=== PATIENT | female | born 1945 | race Caucasian/White ===

== ENCOUNTER 2021-02-04 15:47 | Inpatient (IN) ==
[2021-02-04] MEDS ORDERED: ACETAMINOPHEN 1,000 MG/100 ML VIAL IV STA (16:21)
[2021-02-04] MEDS ORDERED: dexAMETHasone**PF** 10 MG/ML VIAL IV ONE (16:21)
[2021-02-04] MEDS ORDERED: SODIUM CHLORIDE 0.9% 1000ML 1,000 ML IV ONE (16:21)
[2021-02-04] MEDS ORDERED: IPRATROPIUM BROMIDE/ALBUTEROL respimat INH INH STA (16:23)
[2021-02-04] MEDS ORDERED: guaiFENesin 600 MG TABCR PO STA (16:23)
[2021-02-04 16:33] LABS: Hematocrit (blood only) 37.4 % (37-47); Hemoglobin 12.3 g/dL (12.0-16.0); Immature Granulocytes # (auto) 0.02 K/uL (0.00-0.02); Immature Granulocytes % (auto) 0.4 %; Lymphocytes # (auto) 1.19 K/uL (1.2-3.4); Lymphocytes % (auto) 22.8 %; Mean Corpuscular Hemoglobin 29.1 pg (25-34); Mean Corpuscular Hgb Conc 32.9 g/dL (32-36); Mean Corpuscular Volume 88.4 fL (80-100); Mean Platelet Volume 9.9 fL (7.4-10.4); Monocytes % (auto) 9.6 %; Neutrophils # (auto) 3.52 K/uL (1.4-6.5); Neutrophils % (auto) 67.2 %; Platelet Count 205 K/uL (130-400); RDW Coefficient of Variation 13.2 % (11.5-14.5); RDW Standard Deviation 42.7 fL (36.4-46.3); Red Blood Count 4.23 M/uL (4.2-5.4); White Blood Count 5.23 K/uL (4.8-10.8)
[2021-02-04 16:57] LABS: Prothrombin Time 10.1 Seconds (9.0-12.0)
[2021-02-04 16:59] LABS: Albumin Level 2.9 gm/dl (3.4-5.0); BUN Creatinine Ratio 14.9 (10-20); Creatinine Clr Calc Pharmacy 69.2 ml/min; Est GFR (African American) 93.6; Est GFR (Non-African American) 80.8; Potassium 3.7 mmol/L (3.5-5.1)
--- NOTE | 2021-02-04 16:59 | XRay Report ---
XR chest 1V portable HISTORY: Atypical Chest Pain COMPARISON: Outside hospital chest CTA 07/21/2016. FINDINGS: Chronic volume loss within the left hemithorax secondary to a prior left lower lobectomy. T here is a stable linear scarlike density at the left lung base. No pneumothorax. No pleural effusions . The heart is normal in size. Hazy peripheral airspace opacities within the mid to lower lung zones. The upper lung zones remain clear. No evidence for pulmonary edema. IMPRESSION: Hazy peripheral airspace opacities within the mid to lower lung zones. This could represent a viral p neumonia ACT 112: Negative or not required by law. Electronically signed by: Harrison Luna M.D. 02/04/2021 4:57 PM
[2021-02-04 17:01] LABS: Appearance Urine Clear (Clear); Bacteria Urine Automated Negative (Negative); Bilirubin Urine Negative (Negative); Blood Urine Trace (Negative); Color Urine Yellow; Glucose Urine UA Negative (Negative); Ketones Urine Negative (Negative); Leukocyte Esterase Urine Negative (Negative); Nitrite Urine Negative (Negative); Protein Urine Negative (Negative); RBC Urine Automated 0-4 /hpf (0-4); Urobilinogen Urine Negative (Negative); pH Urine 6.5 (4.5-7.5)
--- NOTE | 2021-02-04 17:08 | Emergency Department Note ---
Impression & Plan Pneumonia due to COVID-19 virus, Hypoxia, Elevated troponin ED Provider Note NAME: CASSIDY NOLAN AGE: 75 SEX: F ARRIVES VIA: Ambulance INFORMANT: Patient, ED PROVIDER(S): Chema Figueroa MD CHIEF COMPLAINT: Shortness of breath. PLAN: Disposition: Admit MEDICAL DECISION MAKING: The patient is a pleasant 75-year-old woman with a past medical history of hypertension, hyperlipidemia, possible history of COPD in the setting of remote smoking history, CAD who presents to the emergency department with worsening shortness of breath, body aches and fatigue in the setting of being diagnosed with COVID-19 on 01/23 with symptoms that began shortly before that but with progressive worsening seen at [place] emergency department yesterday but discharged however additional worsening today. She reports significant shortness of breath that worsens with minimal exertion where she cannot catch her breath. She denies chest pain. She denies any recent fevers but has felt feverish with body aches. She reports some mild nausea but no vomiting. She denies any diarrhea. Denies any urinary symptoms. On arrival the patient is fatigued, uncomfortable mildly dyspneic but no acute distress, temperature of 37.6 with O2 saturation that would dipped as low as 86% with exertion on room air placed on 2 L nasal cannula. She appears clinically dry. She has mild perioral cyanosis. Abdomen is benign. Lungs with scant intermittent wheeze and is otherwise clear. Chest x-ray performed and is consistent with COVID-19 pneumonia. WBC, H/H and platelets within normal limits. Chemistry without metabolic acidosis. LFTs without significant abnormality. Troponin 0.083 likely related to demand in setting of hypoxia/pna. UA without evidence of infection. Given the patient's hypoxia and dyspnea in setting of COVID-19 pna reasonable to admit the patient for further management. The patient is agreeable with this. She was treated in itially with IV fluid hydration, dexamethasone, guaifenesin and Combivent. Case was discussed with Dr. Temple, [facility] hospitalist, who will evaluate the patient for admission. Triage Nursing notes reviewed and agree them. Prior medical records reviewed Vital Signs: reviewed and remarkable for hypoxia. Differential diagnosis: Reactive airway disease, pneumonia, pneumothorax, COPD, CHF, infections, cardiac ischemia, pulmonary embolism, musculoskeletal, gastrointestinal, as well as other pathologies. ER treatment provided: See below. Diagnostics interpreted by me: ECG: NSR, 70 bpm, no ectopy, no overt ST elevation or depression. Cardiac Monitoring: An order for continuous cardiac monitoring was placed and demonstrated NSR, 70 bpm, no ectopy. Laboratory studies: See below Imaging studies: See below Consultation(s): Case was discussed with Dr. Temple, [facility] hospitalist, who will evaluate the patient for admission. HPI: The patient is a pleasant 75-year-old woman with a past medical history of hypertension, hyperlipidemia, possible history of COPD in the setting of remote smoking history, CAD who presents to the emergency department with worsening shortness of breath, body aches and fatigue in the setting of being diagnosed with COVID-19 on 01/23 with symptoms that began shortly before that but with progressive worsening seen at [place] emergency department yesterday but discharged however additional worsening today. She reports significant shortness of breath that worsens with minimal exertion where she cannot catch her breath. She denies chest pain. She denies any recent fevers but has felt feverish with body aches. She reports some mild nausea but no vomiting. She denies any diarrhea. Denies any urinary symptoms. ROS: See above HPI for pertinent positives & negatives. A total of 10 systems reviewed and were otherwise negative. PAST MEDICAL HISTORY:See Below PAST SURGICAL HISTORY:See Below FAMILY HISTORY:See Below SOCIAL HISTORY:See Below HOME MEDICATIONS:See Below ALLERGIES:See Below VITALS:See Below PHYSICAL EXAMINATION: GENERAL: Awake, alert, fatigued-appearing, in no distress HENT: Normocephalic, atraumatic. Oropharynx with dry mucous membranes. Perioral cyanosis. EYES: Normal conjunctiva. Sclera non-icteric. NECK: Supple. No nuchal rigidity. FROM. No JVD. RESPIRATORY: Scant intermittent wheeze and is otherwise clear. CARDIAC: Regular rate, normal rhythm. Extremities warm and well perfused. Pulses equal. ABDOMEN: Soft, non-distended. No tenderness to palpation. No rebound or guarding. No masses. RECTAL: Deferred. MUSCULOSKELETAL: Chest examination reveals no tenderness. The back is symmetrical on inspection without obvious abnormality. There is no CVA tenderness to palpation. No joint edema. LOWER EXTREMITIES: Calves are equal size bilaterally and non-tender. No edema. No discoloration. NEURO: Normal sensorium. No sensory or motor deficits noted. SKIN: No rash or jaundice noted. ED COURSE: Critical Care: I have personally spent greater than 35 minutes of critical care time in the direct management of this patient. This includes bedside care, interpretation of diagnostic studies, and testing, discussion with consultants, patient, and family members, and other required patient management activities. This 35 minutes is in excess of all separately billable procedures. Chema Figueroa MD Past Med/Surg History Medical History Acute myocardial infarction Hospitalized [facility] - 2016; 2 stents placed CAD (coronary artery disease) Essential (primary) hypertension Lung cancer LLL, ~2006 Mixed hyperlipidemia Surgical History H/O hysterectomy with unilateral oophorectomy Hx of appendectomy S/P laparoscopic cholecystectomy S/P lobectomy of lung 2006 - [facility]; removal of LLL 2nd lung cancer Family History Aunt Pulmonary embolism maternal aunt Mother , age 73 Congestive heart failure Father , age late 70s - old age; was a heavy alcohol consumer No problems noted. Social History Smoking Status: Former smoker Years Smoked: 15; Cigarettes Per Day: 0.5; Second Hand Exposure: No; Do You Dip or Chew Tobacco: No; Hx Alcohol Use: No Hx Substance Use: No Preferred Language: Slovenian Communication Ability: Effective President Ceo & Founder Required: No Beliefs That Will Affect Care: None marital status: Current Living Situation: Spouse Current Living Situation Comment: Aimee current occupation: home-maker How many Children do You have: 5 Other Information That Helps Us Care for You: No Feels Safe at Home: Yes Safety Concerns: Feels Safe At This Time Assistive Devices: None Allergies Allergies Allergy/AdvReac Type Severity Reaction Status Date / Time latex Allergy Intermediate RASH Verified 02/04/21 17:16 Sulfa (Sulfonamide Allergy Intermediate RASH Verified 02/04/21 17:16 Antibiotics) Home Meds Home Medications Medication Instructions Recorded Confirmed aspirin [Aspirin Low Dose] 81 mg PO DAILY 02/04/21 02/04/21 atorvastatin 40 mg PO DAILY 02/04/21 02/04/21 carvedilol 3.125 mg PO BID 02/04/21 02/04/21 doxycycline monohydrate 100 mg PO BID 02/04/21 02/04/21 lisinopril 20 mg PO DAILY 02/04/21 02/04/21 Results & Data (ED) Vital Signs Vital Signs - 24 hr 02/04/21 15:21 02/04/21 16:02 02/04/21 16:03 Temperature 37.6 C H Temperature Source Oral Pulse Rate 72 74 Pulse Rate from SpO2 Sensor 72 Pulse Rhythm Regular Pulse Strength Normal Respiratory Rate 24 22 Respiratory Effort / Characteristics Short of Breath Respiratory Depth Normal Respiratory Pattern Regular Blood Pressure 151/72 H 151/72 H Blood Pressure Mean 98 98 Blood Pressure Position Sitting Pulse Oximetry 98 93 92 Oxygen Delivery Method Room Air Room Air Oxygen Flow Rate 2 Sepsis Recent Fever Within 48 Hours No Sepsis New/Unexplained Change in Mental Status No Sepsis Action Taken by Nursing No Action Required Pulse Oximetry Post Tiitration 96 02/04/21 16:09 02/04/21 16:10 02/04/21 16:15 Temperature Temperature Source Pulse Rate 72 75 71 Pulse Rate from SpO2 Sensor 72 72 69 Pulse Rhythm Pulse Strength Respiratory Rate 21 24 23 Respiratory Effort / Characteristics Respiratory Depth Respiratory Pattern Blood Pressure 141/68 H Blood Pressure Mean 92 Blood Pressure Position Pulse Oximetry 94 94 94 Oxygen Delivery Method Oxygen Flow Rate 4 Sepsis Recent Fever Within 48 Hours Sepsis New/Unexplained Change in Mental Status Sepsis Action Taken by Nursing Pulse Oximetry Post Tiitration 02/04/21 16:21 02/04/21 16:30 02/04/21 16:31 Temperature Temperature Source Pulse Rate 86 70 69 Pulse Rate from SpO2 Sensor 85 69 70 Pulse Rhythm Pulse Strength Respiratory Rate 20 24 25 H Respiratory Effort / Characteristics Respiratory Depth Respiratory Pattern Blood Pressure 162/71 H Blood Pressure Mean 101 Blood Pressure Position Pulse Oximetry 85 L 95 95 Oxygen Delivery Method Oxygen Flow Rate 4 Sepsis Recent Fever Within 48 Hours Sepsis New/Unexplained Change in Mental Status Sepsis Action Taken by Nursing Pulse Oximetry Post Tiitration 02/04/21 16:40 02/04/21 16:45 02/04/21 16:50 Temperature Temperature Source Pulse Rate 70 71 76 Pulse Rate from SpO2 Sensor 69 70 80 Pulse Rhythm Pulse Strength Respiratory Rate 23 25 H 23 Respiratory Effort / Characteristics Respiratory Depth Respiratory Pattern Blood Pressure 146/64 H Blood Pressure Mean 91 Blood Pressure Position Pulse Oximetry 95 95 95 Oxygen Delivery Method Oxygen Flow Rate Sepsis Recent Fever Within 48 Hours Sepsis New/Unexplained Change in Mental Status Sepsis Action Taken by Nursing Pulse Oximetry Post Tiitration 02/04/21 17:00 02/04/21 17:01 02/04/21 17:10 Temperature Temperature Source Pulse Rate 72 69 79 Pulse Rate from SpO2 Sensor 71 69 79 Pulse Rhythm Pulse Strength Respiratory Rate 20 28 H 26 H Respiratory Effort / Characteristics Respiratory Depth Respiratory Pattern Blood Pressure 151/83 H Blood Pressure Mean 105 Blood Pressure Position Pulse Oximetry 96 95 98 Oxygen Delivery Method Oxygen Flow Rate Sepsis Recent Fever Within 48 Hours Sepsis New/Unexplained Change in Mental Status Sepsis Action Taken by Nursing Pulse Oximetry Post Tiitration 02/04/21 17:16 02/04/21 17:20 02/04/21 17:30 Temperature Temperature Source Pulse Rate 78 74 80 Pulse Rate from SpO2 Sensor 78 74 80 Pulse Rhythm Pulse Strength Respiratory Rate 36 H 25 H 20 Respiratory Effort / Characteristics Respiratory Depth Respiratory Pattern Blood Pressure 132/84 161/70 H Blood Pressure Mean 100 100 Blood Pressure Position Pulse Oximetry 100 97 95 Oxygen Delivery Method Oxygen Flow Rate Sepsis Recent Fever Within 48 Hours Sepsis New/Unexplained Change in Mental Status Sepsis Action Taken by Nursing Pulse Oximetry Post Tiitration 02/04/21 17:31 02/04/21 17:40 02/04/21 17:45 Temperature Temperature Source Pulse Rate 74 77 73 Pulse Rate from SpO2 Sensor 75 77 73 Pulse Rhythm Pulse Strength Respiratory Rate 24 24 24 Respiratory Effort / Characteristics Respiratory Depth Respiratory Pattern Blood Pressure 145/73 H Blood Pressure Mean 97 Blood Pressure Position Pulse Oximetry 97 98 97 Oxygen Delivery Method Oxygen Flow Rate Sepsis Recent Fever Within 48 Hours Sepsis New/Unexplained Change in Mental Status Sepsis Action Taken by Nursing Pulse Oximetry Post Tiitration 02/04/21 17:50 02/04/21 18:00 02/04/21 18:01 Temperature Temperature Source Pulse Rate 74 79 93 H Pulse Rate from SpO2 Sensor 74 78 83 Pulse Rhythm Pulse Strength Respiratory Rate 22 28 H 20 Respiratory Effort / Characteristics Respiratory Depth Respiratory Pattern Blood Pressure 98/65 L Blood Pressure Mean 76 Blood Pressure Position Pulse Oximetry 96 93 94 Oxygen Delivery Method Oxygen Flow Rate Sepsis Recent Fever Within 48 Hours Sepsis New/Unexplained Change in Mental Status Sepsis Action Taken by Nursing Pulse Oximetry Post Tiitration 02/04/21 18:10 02/04/21 18:16 Temperature Temperature Source Pulse Rate 72 Pulse Rate from SpO2 Sensor 72 Pulse Rhythm Pulse Strength Respiratory Rate 22 Respiratory Effort / Characteristics Respiratory Depth Respiratory Pattern Blood Pressure 154/75 H Blood Pressure Mean 101 Blood Pressure Position Pulse Oximetry 94 Oxygen Delivery Method Oxygen Flow Rate Sepsis Recent Fever Within 48 Hours Sepsis New/Unexplained Change in Mental Status Sepsis Action Taken by Nursing Pulse Oximetry Post Tiitration Laboratory Data Attestation: I reviewed the patient's lab results. Result diagrams: 02/04/21 16:16 02/04/21 16:16 Lab Results 02/04/21 02/04/21 02/04/21 Range/Units 16:16 16:16 16:16 WBC 5.23 (4.8-10.8) K/uL RBC 4.23 (4.2-5.4) M/uL Hgb 12.3 (12.0-16.0) g/dL Hct 37.4 (37-47) % MCV 88.4 (80-100) fL MCH 29.1 (25-34) pg MCHC 32.9 (32-36) g/dL RDW Std Deviation 42.7 (36.4-46.3) fL RDW Coeff of Chapo 13.2 (11.5-14.5) % Plt Count 205 (130-400) K/uL MPV 9.9 (7.4-10.4) fL Immature Gran % (Auto) 0.4 % Neut % (Auto) 67.2 % Lymph % (Auto) 22.8 % Mower % (Auto) 9.6 % Eos % (Auto) 0.0 % Baso % (Auto) 0.0 % Neut # (Auto) 3.52 (1.4-6.5) K/uL Lymph # (Auto) 1.19 L (1.2-3.4) K/uL Mower # (Auto) 0.50 (0.11-0.59) K/uL Eos # (Auto) 0.00 (0-0.5) K/uL Baso # (Auto) 0.00 (0-0.2) K/uL Immature Gran # (Auto) 0.02 (0.00-0.02) K/uL PT 10.1 (9.0-12.0) Seconds INR 1.0 (0.9-1.1) Sodium 141 (136-145) mmol/L Potassium 3.7 (3.5-5.1) mmol/L Chloride 110 H (98-107) mmol/L Carbon Dioxide 27 (21-32) mmol/L Anion Gap 4.0 (3-11) BUN 11 (7-18) mg/dl Creatinine 0.72 (0.6-1.2) mg/dl Est Cr Clr Drug Dosing 69.2 ml/min Est GFR ( Amer) 93.6 Est GFR (Non-Af Amer) 80.8 BUN/Creatinine Ratio 14.9 (10-20) Glucose 101 H (70-99) mg/dl Calcium 8.0 L (8.5-10.1) mg/dl Phosphorus 2.4 L (2.5-4.9) mg/dl Magnesium 2.0 (1.8-2.4) mg/dl Total Bilirubin 0.6 (0.2-1) mg/dl AST 48 H (15-37) U/L ALT 67 (12-78) U/L Alkaline Phosphatase 52 (45-117) U/L Troponin I 0.083 H* (0-0.045) ng/ml Total Protein 6.5 (6.4-8.2) gm/dl Albumin 2.9 L (3.4-5.0) gm/dl Globulin 3.6 (2.5-4.0) gm/dl Albumin/Globulin Ratio 0.8 L (0.9-2) Lipase 282 (73-393) U/L Urine Color Urine Appearance (Clear) Urine pH (4.5-7.5) Ur Specific Coin (1.000-1.030) Urine Protein (Negative) Urine Glucose (UA) (Negative) Urine Ketones (Negative) Urine Blood (Negative) Urine Nitrite (Negative) Urine Bilirubin (Negative) Urine Urobilinogen (Negative) Ur Leukocyte Esterase (Negative) Urine WBC (Auto) (0-5) /hpf Urine RBC (Auto) (0-4) /hpf U Hyaline Cast (Auto) (0-5) /lpf U Epithel Cells (Auto) (0-5) /lpf Urine Bacteria (Auto) (Negative) 02/04/21 Range/Units 16:20 WBC (4.8-10.8) K/uL RBC (4.2-5.4) M/uL Hgb (12.0-16.0) g/dL Hct (37-47) % MCV (80-100) fL MCH (25-34) pg MCHC (32-36) g/dL RDW Std Deviation (36.4-46.3) fL RDW Coeff of Chapo (11.5-14.5) % Plt Count (130-400) K/uL MPV (7.4-10.4) fL Immature Gran % (Auto) % Neut % (Auto) % Lymph % (Auto) % Mower % (Auto) % Eos % (Auto) % Baso % (Auto) % Neut # (Auto) (1.4-6.5) K/uL Lymph # (Auto) (1.2-3.4) K/uL Mower # (Auto) (0.11-0.59) K/uL Eos # (Auto) (0-0.5) K/uL Baso # (Auto) (0-0.2) K/uL Immature Gran # (Auto) (0.00-0.02) K/uL PT (9.0-12.0) Seconds INR (0.9-1.1) Sodium (136-145) mmol/L Potassium (3.5-5.1) mmol/L Chloride (98-107) mmol/L Carbon Dioxide (21-32) mmol/L Anion Gap (3-11) BUN (7-18) mg/dl Creatinine (0.6-1.2) mg/dl Est Cr Clr Drug Dosing ml/min Est GFR ( Amer) Est GFR (Non-Af Amer) BUN/Creatinine Ratio (10-20) Glucose (70-99) mg/dl Calcium (8.5-10.1) mg/dl Phosphorus (2.5-4.9) mg/dl Magnesium (1.8-2.4) mg/dl Total Bilirubin (0.2-1) mg/dl AST (15-37) U/L ALT (12-78) U/L Alkaline Phosphatase (45-117) U/L Troponin I (0-0.045) ng/ml Total Protein (6.4-8.2) gm/dl Albumin (3.4-5.0) gm/dl Globulin (2.5-4.0) gm/dl Albumin/Globulin Ratio (0.9-2) Lipase (73-393) U/L Urine Color Yellow Urine Appearance Clear (Clear) Urine pH 6.5 (4.5-7.5) Ur Specific Coin 1.010 (1.000-1.030) Urine Protein Negative (Negative) Urine Glucose (UA) Negative (Negative) Urine Ketones Negative (Negative) Urine Blood Trace H (Negative) Urine Nitrite Negative (Negative) Urine Bilirubin Negative (Negative) Urine Urobilinogen Negative (Negative) Ur Leukocyte Esterase Negative (Negative) Urine WBC (Auto) 1-5 (0-5) /hpf Urine RBC (Auto) 0-4 (0-4) /hpf U Hyaline Cast (Auto) 1-5 (0-5) /lpf U Epithel Cells (Auto) 5-10 H (0-5) /lpf Urine Bacteria (Auto) Negative (Negative) Administered Medications Carvedilol (Carvedilol 3.125 Mg Tab) 3.125 mg PO BID LUIS Stop: 03/06/21 22:28 Last Admin: 02/04/21 23:35 Dose: 3.125 mg Documented by: [id number] Famotidine (Famotidine 20 Mg Tab) 20 mg PO BID LUIS Stop: 03/06/21 22:28 Last Admin: 02/04/21 23:35 Dose: 20 mg Documented by: [id number] Guaifenesin (Guaifenesin 600 Mg Tabcr) 1,200 mg PO Q12 LUIS Stop: 03/06/21 22:28 Last Admin: 02/04/21 23:35 Dose: 1,200 mg Documented by: [id number] Sodium Chloride (Nss 1000ml) 1,000 mls @ 100 mls/hr IV .Q10H LUIS Stop: 02/05/21 08:28 Last Admin: 02/04/21 23:35 Dose: 100 mls/hr Documented by: [id number] Discontinued Medications Albuterol (Ipratropium [place]/Albuterol Respimat Inh) 1 puffs INH NOW STA Stop: 02/04/21 16:24 Last Admin: 02/04/21 17:15 Dose: 1 puffs Documented by: [id number] Dexamethasone Sodium Phosphate (DexamethasonePf 10 Mg/Ml Vial) 10 mg IV NOW ONE Stop: 02/04/21 16:22 Last Admin: 02/04/21 17:05 Dose: 10 mg Documented by: [id number] Guaifenesin (Guaifenesin 600 Mg Tabcr) 600 mg PO NOW STA Stop: 02/04/21 16:24 Last Admin: 02/04/21 17:04 Dose: 600 mg Documented by: [id number] Sodium Chloride (Nss 1000ml) 1,000 mls @ 999 mls/hr IV .Q1H1M ONE Stop: 02/04/21 17:21 Last Infusion: 02/04/21 18:02 Dose: 0 mls/hr Documented by: [id number] Admin: 02/04/21 17:01 Dose: 999 mls/hr Documented by: [id number] Acetaminophen (Ofirmev) 1,000 mg in 100 mls @ 400 mls/hr IV NOW STA Stop: 02/04/21 16:35 Last Infusion: 02/04/21 17:22 Dose: 0 mls/hr Documented by: [id number] Admin: 02/04/21 17:07 Dose: 400 mls/hr Documented by: [id number] Imaging Data Radiologist's Impression: Chest X-Ray 02/04/21 16:21 XR chest 1V portable HISTORY: Atypical Chest Pain COMPARISON: Outside hospital chest CTA 07/21/2016. FINDINGS: Chronic volume loss within the left hemithorax secondary to a prior left lower lobectomy. There is a stable linear scarlike density at the left lung base. No pneumothorax. No pleural effusions. The heart is normal in size. Hazy peripheral airspace opacities within the mid to lower lung zones. The upper lung zones remain clear. No evidence for pulmonary edema. IMPRESSION: Hazy peripheral airspace opacities within the mid to lower lung zones. This could represent a viral pneumonia ACT 112: Negative or not required by law. Electronically signed by: Harrison Luna M.D. 02/04/2021 4:57 PM Discharge Plan Visit Data Chief Complaint: Illness Stated Complaint: SOB, COVID + ED Provider: Chema Figueroa Discharge Problem: Pneumonia due to COVID-19 virus, Hypoxia, Elevated troponin Patient Disposition: Admitted As Inpatient Discharge Instructions Interventions: ED Discharge Assessment Last Done: 02/04/21 22:04
[2021-02-04 17:19] LABS: Albumin Globulin Ratio 0.8 (0.9-2); Bilirubin,Total 0.6 mg/dl (0.2-1); Globulin 3.6 gm/dl (2.5-4.0); Phosphorus 2.4 mg/dl (2.5-4.9); Total Protein 6.5 gm/dl (6.4-8.2); Troponin I 0.083 ng/ml (0-0.045)
--- NOTE | 2021-02-04 18:54 | History & Physical Report ---
Date of Service February 04, 2021 Assessment & Plan (1) Pneumonia due to COVID-19 virus: With resulting acute hypoxic resp failure. Moderate disease radiographically and clinically. Unfortunately she is too far into her illness for use of remdesivir or convalescent plasma. Will Rx with 10-day course of IV/PO dexamethasone 6mg daily. Discussed in detail self-proning. Flutter valve/incentive cindy. O2 via NC to maintain O2 >90%. Mucinex BID. Combivent qid. Check dimer and procal in am. However, no signs of secondary bacterial infection at this time. (2) Acute respiratory failure with hypoxia: 2nd COVID-19 pneumonia. See above. (3) CAD (coronary artery disease): h/o acute [place] 2015. Stents x 2 at that time; placed at [facility]. No ischemic symptoms at this time. Continue asa, statin, BB. (4) Mixed hyperlipidemia: AST minimally elevated today; likely 2nd to COVID-19. Will cont statin cautiously. Recheck AST am. (5) Essential (primary) hypertension: Cont coreg & lisinopril. (6) Elevated troponin: Likely myocardial demand ischemia in setting of acute hypoxic resp failure/COVID-19 pneumonia. Trend the trops. (7) History of lung cancer: LLL. s/p lobectomy in the past. (8) Elevated AST (SGOT): Likely 2nd COVID-19 infection. Trend. (9) DVT prophylaxis: Given high risk of VTE with COVID will place on BID lovenox. spoke with pt's son by phone, gave update, answered questions. has tested + per son but he is without symptoms. airborne isolation in COVID unit. History of Present Illness Chief Complaint: worsening COVID symptoms Primary Care Provider: Dougie Del Valle 75yo female with h/o HTN & hyperlipidemia presents with worsening COVID-19 symptoms that began on January 23. Started with severe fatigue for 2-3 days, followed by severe body aches. This was associated with nasal congestion, headache, and cough. The cough started very early in the illness. Cough is largely dry. Has had at least 2 instances of fever, highest about 101. Occasional chill. VERY poor appetite. Drinking some fluids. No vomiting or diarrhea. Has had nausea. Has lost both her taste and smell. The cough and shortness of breath have worsened in the last few days. She had mild discomfort under the costal margin recently but this is now resolved. Today she "couldn't stand it any longer - I was so sick" and thus she came to be evaluated. Her initial diagnosis of COVID was made in early January at an urgent care in [place]. The MD at the urgent care called in doxycycline for a possible concomitant sinus infection but she never took it. Allergies Allergy/AdvReac Type Severity Reaction Status Date / Time latex Allergy Intermediate RASH Verified 02/04/21 17:16 Sulfa (Sulfonamide Allergy Intermediate RASH Verified 02/04/21 17:16 Antibiotics) Home Medications Medication Instructions Recorded Confirmed Type aspirin [Aspirin Low Dose] 81 mg PO DAILY 02/04/21 02/04/21 History atorvastatin 40 mg PO DAILY 02/04/21 02/04/21 History carvedilol 3.125 mg PO BID 02/04/21 02/04/21 History doxycycline monohydrate 100 mg PO BID 02/04/21 02/04/21 History lisinopril 20 mg PO DAILY 02/04/21 02/04/21 History Past Med/Surg History Medical History Acute myocardial infarction Hospitalized [facility] - 2016; 2 stents placed CAD (coronary artery disease) Essential (primary) hypertension Lung cancer LLL, ~2006 Mixed hyperlipidemia Surgical History H/O hysterectomy with unilateral oophorectomy Hx of appendectomy S/P laparoscopic cholecystectomy S/P lobectomy of lung 2006 - [facility]; removal of LLL 2nd lung cancer Family History Aunt Pulmonary embolism maternal aunt Mother , age 73 Congestive heart failure Father , age late 70s - old age; was a heavy alcohol consumer No problems noted. Social History Smoking Status: Former smoker Years Smoked: 15; Cigarettes Per Day: 0.5; Second Hand Exposure: No; Do You Dip or Chew Tobacco: No; Hx Alcohol Use: No Hx Substance Use: No Preferred Language: Cuban Communication Ability: Effective Last Sorter Required: No Beliefs That Will Affect Care: None marital status: Current Living Situation: Spouse Current Living Situation Comment: Aimee current occupation: home-maker How many Children do You have: 5 Other Information That Helps Us Care for You: No Feels Safe at Home: Yes Safety Concerns: Feels Safe At This Time Assistive Devices: None Review of Systems Constitutional: + fever, + chills, + body aches, + fatigue, + weakness and + anorexia Eyes: no worsening vision Ear, Nose, Mouth, Throat: + nasal congestion and + dry mouth; no dysphagia no loss of taste/smell Respiratory: + cough, + chest congestion, + dyspnea, + dyspnea on exertion and + sputum production; no hemoptysis and no wheezing Cardiovascular: no chest pain and no edema Gastrointestinal: + nausea and + constipation; no abdominal pain, no vomiting and no diarrhea/loose stools Genitourinary: no dysuria Musculoskeletal: + myalgia Integumentary: no rash Neurologic: + generalized weakness Psychiatric: no depression Endocrine: no diabetes Hematologic / Lymphatic: no easy bleeding and no easy bruising Physical Exam Constitutional: + acute distress (None at rest; with moving she has dyspnea and mild tachypnea ), + ill appearing and + frail appearing; no altered mental status Eyes: PERRL ENMT: Mouth: + dry oral mucous membranes Neck: trachea midline, no thyromegaly Respiratory: + retractions (Minimal - when she moves in bed), + cough and + tachypneic Auscultation: + crackles (Extensive, b/l bases, 1/[address] back) and + wheezes (Only when she coughs) Cardiovascular: Rate/Rhythm: regular rate and regular rhythm Heart Sounds: normal S1 and normal S2; no murmur Vessels: posterior tibial pulses present and dorsalis pedis pulses present; no JVD Extremities: no edema Gastrointestinal (Abdomen): normal bowel sounds, soft, nontender, no hepatosplenomegaly Musculoskeletal: no cyanosis or clubbing, extremities motor strength 5/5 Skin: no rashes, warm and dry Neurologic: deep tendon reflexes 2+ bilaterally and moves all extremities; no focal motor deficits Psychiatric: A+Ox3, euthymic affect Lymphatic: no cervical lymphadenopathy Results & Data Results & Data ([facility]) Vital Signs (Past 12 Hours) Vital Signs Temp Pulse Resp BP Pulse Ox 02/04/21 16:03 37.6 C H 74 22 151/72 H 92 02/04/21 15:21 98 Laboratory Results Laboratory Results - last 24 hr 02/04/21 02/04/21 02/04/21 16:16 16:16 16:16 WBC 5.23 RBC 4.23 Hgb 12.3 Hct 37.4 MCV 88.4 MCH 29.1 MCHC 32.9 RDW Std Deviation 42.7 RDW Coeff of Chapo 13.2 Plt Count 205 MPV 9.9 Immature Gran % (Auto) 0.4 Neut % (Auto) 67.2 Lymph % (Auto) 22.8 Dixon % (Auto) 9.6 Eos % (Auto) 0.0 Baso % (Auto) 0.0 Neut # (Auto) 3.52 Lymph # (Auto) 1.19 L Dixon # (Auto) 0.50 Eos # (Auto) 0.00 Baso # (Auto) 0.00 Immature Gran # (Auto) 0.02 PT 10.1 INR 1.0 D-Dimer Sodium 141 Potassium 3.7 Chloride 110 H Carbon Dioxide 27 Anion Gap 4.0 BUN 11 Creatinine 0.72 Est Cr Clr Drug Dosing 69.2 Est GFR ( Amer) 93.6 Est GFR (Non-Af Amer) 80.8 BUN/Creatinine Ratio 14.9 Glucose 101 H Calcium 8.0 L Phosphorus 2.4 L Magnesium 2.0 Total Bilirubin 0.6 AST 48 H ALT 67 Alkaline Phosphatase 52 Troponin I 0.083 H* Total Protein 6.5 Albumin 2.9 L Globulin 3.6 Albumin/Globulin Ratio 0.8 L Lipase 282 Procalcitonin Urine Color Urine Appearance Urine pH Ur Specific [place] Urine Protein Urine Glucose (UA) Urine Ketones Urine Blood Urine Nitrite Urine Bilirubin Urine Urobilinogen Ur Leukocyte Esterase Urine WBC (Auto) Urine RBC (Auto) U Hyaline Cast (Auto) U Epithel Cells (Auto) Urine Bacteria (Auto) 02/04/21 02/04/21 02/05/21 16:20 22:59 06:27 WBC RBC Hgb Hct MCV MCH MCHC RDW Std Deviation RDW Coeff of Chapo Plt Count MPV Immature Gran % (Auto) Neut % (Auto) Lymph % (Auto) Dixon % (Auto) Eos % (Auto) Baso % (Auto) Neut # (Auto) Lymph # (Auto) Dixon # (Auto) Eos # (Auto) Baso # (Auto) Immature Gran # (Auto) PT INR D-Dimer Sodium Potassium Chloride Carbon Dioxide Anion Gap BUN Creatinine Est Cr Clr Drug Dosing Est GFR ( Amer) Est GFR (Non-Af Amer) BUN/Creatinine Ratio Glucose Calcium Phosphorus Magnesium Total Bilirubin AST ALT Alkaline Phosphatase Troponin I 0.083 H* Total Protein Albumin Globulin Albumin/Globulin Ratio Lipase Procalcitonin Pending Urine Color Yellow Urine Appearance Clear Urine pH 6.5 Ur Specific [place] 1.010 Urine Protein Negative Urine Glucose (UA) Negative Urine Ketones Negative Urine Blood Trace H Urine Nitrite Negative Urine Bilirubin Negative Urine Urobilinogen Negative Ur Leukocyte Esterase Negative Urine WBC (Auto) 1-5 Urine RBC (Auto) 0-4 U Hyaline Cast (Auto) 1-5 U Epithel Cells (Auto) 5-10 H Urine Bacteria (Auto) Negative 02/05/21 02/05/21 06:27 06:27 WBC RBC Hgb Hct MCV MCH MCHC RDW Std Deviation RDW Coeff of Chapo Plt Count MPV Immature Gran % (Auto) Neut % (Auto) Lymph % (Auto) Dixon % (Auto) Eos % (Auto) Baso % (Auto) Neut # (Auto) Lymph # (Auto) Dixon # (Auto) Eos # (Auto) Baso # (Auto) Immature Gran # (Auto) PT INR D-Dimer Pending Sodium Pending Potassium Pending Chloride Pending Carbon Dioxide Pending Anion Gap Pending BUN Pending Creatinine Pending Est Cr Clr Drug Dosing Pending Est GFR ( Amer) Pending Est GFR (Non-Af Amer) Pending BUN/Creatinine Ratio Pending Glucose Pending Calcium Pending Phosphorus Magnesium Total Bilirubin AST Pending ALT Alkaline Phosphatase Troponin I Pending Total Protein Albumin Globulin Albumin/Globulin Ratio Lipase Procalcitonin Urine Color Urine Appearance Urine pH Ur Specific [place] Urine Protein Urine Glucose (UA) Urine Ketones Urine Blood Urine Nitrite Urine Bilirubin Urine Urobilinogen Ur Leukocyte Esterase Urine WBC (Auto) Urine RBC (Auto) U Hyaline Cast (Auto) U Epithel Cells (Auto) Urine Bacteria (Auto) Diagnostic Findings Chest X-Ray 02/04/21 16:21 XR chest 1V portable HISTORY: Atypical Chest Pain COMPARISON: Outside hospital chest CTA 07/21/2016. FINDINGS: Chronic volume loss within the left hemithorax secondary to a prior left lower lobectomy. There is a stable linear scarlike density at the left lung base. No pneumothorax. No pleural effusions. The heart is normal in size. Hazy peripheral airspace opacities within the mid to lower lung zones. The upper lung zones remain clear. No evidence for pulmonary edema. IMPRESSION: Hazy peripheral airspace opacities within the mid to lower lung zones. This could represent a viral pneumonia ACT 112: Negative or not required by law. Electronically signed by: Harrison Luna M.D. 02/04/2021 4:57 PM EKG - NSR, no ST changes Code Status & VTE Plan Code Status full VTE Prophylaxis Plan VTE Prophylaxis will be ordered: Yes PG Care Time/CCT Total # of Minutes Spent Total Time Spent with Patient: Total time spent is greater than 50% in coordination of care (as documented) at patient's floor/unit and/or counseling patient: Coding Level of Care Code 82172 Initial Inpt Care Lvl 3 Diagnoses Pneumonia due to COVID-19 virus U07.1; J12.82 Acute respiratory failure with hypoxia J96.01 CAD (coronary artery disease) I25.10 Associated angina: without angina Coronary Disease-Associated Artery/Lesion type: [place] artery [place] vs. transplanted heart: [place] heart Mixed hyperlipidemia E78.2 Essential (primary) hypertension I10 Elevated troponin R77.8 History of lung cancer Z85.118 Elevated AST (SGOT) R74.01 DVT prophylaxis Z29.9 (1) CAD (coronary artery disease) Associated angina: without angina Coronary Disease-Associated Artery/Lesion type: [place] artery [place] vs. transplanted heart: [place]nee heart Qualified Code(s): I25.10 - Atherosclerotic heart disease of [place] coronary artery without angina pectoris
[2021-02-04] MEDS ORDERED: ONDANSETRON INJ 2 MG/ML 2 ML VIAL IV PRN (22:29)
[2021-02-04] MEDS ORDERED: IPRATROPIUM BROMIDE/ALBUTEROL respimat INH INH SCH (22:29)
[2021-02-04] MEDS ORDERED: ACETAMINOPHEN 325 MG TAB PO PRN (22:29)
[2021-02-04] MEDS ORDERED: SODIUM CHLORIDE 0.9% 1000ML 1,000 ML IV SCH (22:29)
[2021-02-04] MEDS: guaiFENesin 600 MG TABCR PO SCH (23:35)
[2021-02-04] MEDS: carvediloL 3.125 MG TAB PO SCH (23:35)
[2021-02-04] MEDS: FAMOTIDINE 20 MG TAB PO SCH (23:35)
[2021-02-05 07:08] LABS: D Dimer 1070 ug/L FEU (0-500)
[2021-02-05 07:25] LABS: BUN Creatinine Ratio 16.5 (10-20); Calcium 8.5 mg/dl (8.5-10.1); Creatinine Clr Calc Pharmacy 79.9 ml/min; Est GFR (African American) 100.8; Potassium 4.1 mmol/L (3.5-5.1)
[2021-02-05 07:37] LABS: Troponin I 0.069 ng/ml (0-0.045)
--- NOTE | 2021-02-05 07:37 | Electrocardiogram Report ---
Test Reason : Blood Pressure : / mmHG Vent. Rate : 070 BPM Atrial Rate : 070 BPM P-R Int : 182 ms QRS Dur : 084 ms QT Int : 382 ms P-R-T Axes : 058 004 035 degrees QTc Int : 412 ms Normal sinus rhythm Normal ECG No previous ECGs available Confirmed by Ryan Dunbar ([id number]) on 02/05/2021 7:37:03 AM Referred By: Dougie Del Valle Confirmed By:Ryan Dunbar
[2021-02-05] MEDS: ENOXAPARIN INJ 40 MG/0.4 ML SYR SQ SCH ×2 (08:37→20:27)
[2021-02-05] MEDS: ASPIRIN 81 MG ECTAB PO SCH (08:38)
[2021-02-05] MEDS: ATORVASTATIN 40 MG TAB PO SCH (08:39)
[2021-02-05] MEDS: lisinopril 20 MG TAB PO SCH (08:39)
[2021-02-05] MEDS: carvediloL 3.125 MG TAB PO SCH ×2 (08:40→20:27)
[2021-02-05] MEDS: FAMOTIDINE 20 MG TAB PO SCH ×2 (08:41→20:25)
[2021-02-05] MEDS: guaiFENesin 600 MG TABCR PO SCH ×2 (08:41→20:26)
[2021-02-05] MEDS: ALBUTEROL HFA 8 GM INHALER INH SCH ×4 (08:45→19:28)
[2021-02-05] MEDS: IPRATROPIUM BROMIDE HFA INHALER INH SCH ×4 (08:49→19:28)
[2021-02-05] MEDS: dexAMETHasone 6 MG in SYRINGE 0 ML IV SCH (09:08)
[2021-02-05] MEDS: POLYETHYLENE (MIRALAX) 17 GM PACK PO SCH (09:09)
--- NOTE | 2021-02-05 22:29 | Hospitalist Progress Note ---
Date of Service February 05, 2021 Assessment & Plan (1) Pneumonia due to COVID-19 virus: With resulting acute hypoxic resp failure. Moderate disease radiographically and clinically. Unfortunately she is too far into her illness for use of remdesivir or convalescent plasma. Will Rx with 10-day course of IV/PO dexamethasone 6mg daily. Discussed in detail self-proning. Flutter valve/incentive cindy. O2 via NC to maintain O2 >90%. Mucinex BID. Combivent qid. No signs of secondary bacterial infection at this time. Will continue above plan. (2) Acute respiratory failure with hypoxia: 2nd COVID-19 pneumonia. See above. (3) CAD (coronary artery disease): h/o acute [place] 2016. Stents x 2 at that time; placed at [facility]. No ischemic symptoms at this time. Continue asa, statin, BB. (4) Mixed hyperlipidemia: AST minimally elevated today; likely 2nd to COVID-19. Will cont statin cautiously. Recheck AST am. (5) Essential (primary) hypertension: Cont coreg & lisinopril. (6) Elevated troponin: Likely myocardial demand ischemia in setting of acute hypoxic resp katelyn lure/COVID-19 pneumonia. Trend the trops. (7) History of lung cancer: LLL. s/p lobectomy in the past. (8) Elevated AST (SGOT): Likely 2nd COVID-19 infection. Trend. (9) DVT prophylaxis: Given high risk of VTE with COVID will place on BID lovenox. spoke with pt's son by phone, gave update, answered questions. has tested + per son but he is without symptoms. airborne isolation in COVID unit. Admission and Anticipated Discharge Date Admission Date: February 04, 2021 Subjective Patient reports she continues to have a productive cough. She has no new complaints She does not feel at her baseline. Review of Systems Constitutional: + fever, + chills, + body aches, + fatigue, + weakness and + anorexia Ear, Nose, Mouth, Throat: + nasal congestion and + dry mouth; no dysphagia no loss of taste/smell Respiratory: + cough, + chest congestion, + dyspnea, + dyspnea on exertion and + sputum production; no hemoptysis and no wheezing Gastrointestinal: + nausea and + constipation; no abdominal pain, no vomiting and no diarrhea/loose stools Musculoskeletal: + myalgia Neurologic: + generalized weakness Endocrine: no diabetes Physical Exam Physical Exam: Constitutional: no altered mental status Eyes: PERRL ENMT: Mouth: + dry oral mucous membranes Neck: trachea midline, no thyromegaly Respiratory: + retractions (Minimal - when she moves in bed), + cough and + tachypneic Auscultation: + crackles (Extensive, b/l bases, 1/[address] back) and + wheezes (Only when she coughs) Cardiovascular: Rate/Rhythm: regular rate and regular rhythm Heart Sounds: normal S1 and normal S2; no murmur Vessels: posterior tibial pulses present and dorsalis pedis pulses present; no JVD Extremities: no edema Gastrointestinal (Abdomen): normal bowel sounds, soft, nontender, no hepatosplenomegaly Musculoskeletal: no cyanosis or clubbing, extremities motor strength 5/5 Skin: no rashes, warm and dry Neurologic: deep tendon reflexes 2+ bilaterally and moves all extremities; no focal motor deficits Psychiatric: A+Ox3, euthymic affect Lymphatic: no cervical lymphadenopathy Results & Data Results & Data ([facility]) Vital Signs (Past 12 Hours) Vital Signs Temp Pulse Pulse Resp BP Pulse Ox 02/05/21 20:20 36.3 C L 71 19 137/64 90 02/05/21 19:29 69 18 89 L 02/05/21 16:20 36.7 C 78 19 137/57 L 91 02/05/21 16:03 70 18 91 02/05/21 15:12 62 02/05/21 12:08 36.6 C 63 18 126/63 91 02/05/21 11:24 57 L 18 93 PG Care Time/CCT Total # of Minutes Spent Total Time Spent with Patient: Total time spent is greater than 50% in coordination of care (as documented) at patient's floor/unit and/or counseling patient: Coding Level of Care Code 38862 Subseq Hosp Care Lvl 2 Diagnoses Pneumonia due to COVID-19 virus U07.1; J12.82 Acute respiratory failure with hypoxia J96.01 CAD (coronary artery disease) I25.10 Associated angina: without angina Coronary Disease-Associated Artery/Lesion type: [place] artery [place] vs. transplanted heart: [place] heart Mixed hyperlipidemia E78.2 Essential (primary) hypertension I10 Elevated troponin R77.8 History of lung cancer Z85.118 Elevated AST (SGOT) R74.01 DVT prophylaxis Z29.9 Time Spent (min) 25 (1) CAD (coronary artery disease) Associated angina: without angina Coronary Disease-Associated Artery/Lesion type: [place] artery [place] vs. transplanted heart: [place] heart Qualified Code(s): I25.10 - Atherosclerotic heart disease of [place] coronary artery without angina pectoris
[2021-02-06] MEDS: ALBUTEROL HFA 8 GM INHALER INH SCH ×4 (07:38→20:03)
[2021-02-06] MEDS: IPRATROPIUM BROMIDE HFA INHALER INH SCH ×4 (07:38→20:03)
[2021-02-06] MEDS: ASPIRIN 81 MG ECTAB PO SCH (08:21)
[2021-02-06] MEDS: lisinopril 20 MG TAB PO SCH (08:21)
[2021-02-06] MEDS: carvediloL 3.125 MG TAB PO SCH ×2 (08:22→21:30)
[2021-02-06] MEDS: ATORVASTATIN 40 MG TAB PO SCH (08:22)
[2021-02-06] MEDS: guaiFENesin 600 MG TABCR PO SCH ×2 (08:22→21:29)
[2021-02-06] MEDS: ENOXAPARIN INJ 40 MG/0.4 ML SYR SQ SCH ×2 (08:23→21:30)
[2021-02-06] MEDS: FAMOTIDINE 20 MG TAB PO SCH ×2 (08:23→21:30)
[2021-02-06] MEDS: POLYETHYLENE (MIRALAX) 17 GM PACK PO SCH (08:33)
[2021-02-06] MEDS: dexAMETHasone 6 MG in SYRINGE 0 ML IV SCH (09:50)
[2021-02-06] MEDS: MELATONIN 3 MG TAB PO PRN (21:30)
[2021-02-06] MEDS ORDERED: CALCIUM CARBONATE 500 MG CHEWABLE TAB PO PRN (21:56)
--- NOTE | 2021-02-06 22:43 | Hospitalist Progress Note ---
Date of Service February 06, 2021 Assessment & Plan (1) Pneumonia due to COVID-19 virus: With resulting acute hypoxic resp failure. Moderate disease radiographically and clinically. Unfortunately she is too far into her illness for use of remdesivir or convalescent plasma. Will Rx with 10-day course of IV/PO dexamethasone 6mg daily. Discussed in detail self-proning. Flutter valve/incentive cindy. O2 via NC to maintain O2 >90%. Mucinex BID. Combivent qid. No signs of secondary bacterial infection at this time. Will continue above plan. She appears more comfrotable, but is improving slowly. She continues to require 2 liter nasal cannula. (2) Acute respiratory failure with hypoxia: 2nd COVID-19 pneumonia. See above. (3) CAD (coronary artery disease): h/o acute [place] 2015. Stents x 2 at that time; placed at [facility]. No ischemic symptoms at this time. Continue asa, statin, BB. (4) Mixed hyperlipidemia: AST minimally elevated today; likely 2nd to COVID-19. Will cont statin cautiously. AST trending down. (5) Essential (primary) hypertension: Cont coreg & lisinopril. (6) Elevated troponin: Likely myocardial demand ischemia in setting of acute hypoxic resp failure/COVID-19 pneumonia. Trops tending down. (7) History of lung cancer: LLL. s/p lobectomy in the past. (8) Elevated AST (SGOT): Likely 2nd COVID-19 infection. Trend. (9) DVT prophylaxis: Given high risk of VTE with COVID will place on BID lovenox. spoke with pt's son by phone, gave update, answered questions. has tested + per son but he is without symptoms. airborne isolation in COVID unit. Admission and Anticipated Discharge Date Admission Date: February 04, 2021 Subjective Patient still feels worn out. She is coughing but she does not have any significant sputum. She states she is using the flutter valve. Review of Systems Review of Systems: All systems reviewed & are unremarkable except as noted in HPI & below Physical Exam Physical Exam: Constitutional: no altered mental status Eyes: PERRL ENMT: Mouth: + dry oral mucous membranes Neck: trachea midline, no thyromegaly Respiratory: decreased wheezing, bilateral rhonchi Cardiovascular: Rate/Rhythm: regular rate and regular rhythm Heart Sounds: normal S1 and normal S2; no murmur Vessels: posterior tibial pulses present and dorsalis pedis pulses present; no JVD Extremities: no edema Gastrointestinal (Abdomen): normal bowel sounds, soft, nontender, no hepatosplenomegaly Musculoskeletal: no cyanosis or clubbing, extremities motor strength 5/5 Skin: no rashes, warm and dry Neurologic: deep tendon reflexes 2+ bilaterally and moves all extremities; no focal motor deficits Psychiatric: A+Ox3, euthymic affect Lymphatic: no cervical lymphadenopathy Results & Data Results & Data ([facility]) Vital Signs (Past 12 Hours) Vital Signs Temp Pulse Resp BP BP Pulse Ox Pulse Ox 02/06/21 22:35 37.0 C 61 18 142/60 H 93 02/06/21 22:22 94 02/06/21 20:15 36.7 C 63 20 167/80 H 91 02/06/21 20:00 68 20 89 L 02/06/21 15:51 36.5 C 67 21 151/71 H 91 02/06/21 15:32 75 20 94 02/06/21 12:04 36.6 C 66 22 148/67 H 91 02/06/21 11:50 71 20 90 PG Care Time/CCT Total # of Minutes Spent Total Time Spent with Patient: Total time spent is greater than 50% in coordination of care (as documented) at patient's floor/unit and/or counseling patient: Coding Level of Care Code 44757 Subseq Hosp Care Lvl 2 Diagnoses Pneumonia due to COVID-19 virus U07.1; J12.82 Acute respiratory failure with hypoxia J96.01 CAD (coronary artery disease) I25.10 Associated angina: without angina Coronary Disease-Associated Artery/Lesion type: [place] artery [place] vs. transplanted heart: [place] heart Mixed hyperlipidemia E78.2 Essential (primary) hypertension I10 Elevated troponin R77.8 History of lung cancer Z85.118 Elevated AST (SGOT) R74.01 DVT prophylaxis Z29.9 Time Spent (min) 25 (1) CAD (coronary artery disease) Associated angina: without angina Coronary Disease-Associated Artery/Lesion type: [place] artery [place] vs. transplanted heart: [place] heart Qualified Code(s): I25.10 - Atherosclerotic heart disease of [place] coronary artery without angina pectoris
[2021-02-07] MEDS: ALBUTEROL HFA 8 GM INHALER INH SCH (07:47)
[2021-02-07] MEDS: IPRATROPIUM BROMIDE HFA INHALER INH SCH (07:47)
[2021-02-07 07:52] LABS: Hematocrit (blood only) 39.4 % (37-47); Hemoglobin 13.1 g/dL (12.0-16.0); Mean Corpuscular Hemoglobin 29.2 pg (25-34); Mean Corpuscular Hgb Conc 33.2 g/dL (32-36); Mean Corpuscular Volume 87.9 fL (80-100); Mean Platelet Volume 10.1 fL (7.4-10.4); Platelet Count 330 K/uL (130-400); RDW Coefficient of Variation 13.2 % (11.5-14.5); RDW Standard Deviation 42.1 fL (36.4-46.3); Red Blood Count 4.48 M/uL (4.2-5.4); White Blood Count 9.23 K/uL (4.8-10.8)
[2021-02-07] MEDS ORDERED: IPRATROPIUM BROMIDE HFA INHALER INH PRN (07:57)
[2021-02-07] MEDS ORDERED: ALBUTEROL HFA 8 GM INHALER INH PRN (07:57)
[2021-02-07] MEDS: ENOXAPARIN INJ 40 MG/0.4 ML SYR SQ SCH ×2 (08:24→21:41)
[2021-02-07] MEDS: POLYETHYLENE (MIRALAX) 17 GM PACK PO SCH (08:24)
[2021-02-07] MEDS: ATORVASTATIN 40 MG TAB PO SCH (08:25)
[2021-02-07] MEDS: guaiFENesin 600 MG TABCR PO SCH ×2 (08:25→21:41)
[2021-02-07] MEDS: carvediloL 3.125 MG TAB PO SCH ×2 (08:26→21:42)
[2021-02-07] MEDS: ASPIRIN 81 MG ECTAB PO SCH (08:26)
[2021-02-07] MEDS: lisinopril 20 MG TAB PO SCH (08:26)
[2021-02-07] MEDS: FAMOTIDINE 20 MG TAB PO SCH ×2 (08:26→21:41)
[2021-02-07 08:28] LABS: BUN Creatinine Ratio 25.7 (10-20); Creatinine Clr Calc Pharmacy 61.9 ml/min; Est GFR (African American) 90.6; Est GFR (Non-African American) 78.1; Potassium 3.6 mmol/L (3.5-5.1)
[2021-02-07] MEDS: dexAMETHasone 6 MG in SYRINGE 0 ML IV SCH (08:49)
--- NOTE | 2021-02-07 10:22 | Hospitalist Progress Note ---
Date of Service February 07, 2021 Assessment & Plan (1) Pneumonia due to COVID-19 virus: With resulting acute hypoxic resp failure. Moderate disease radiographically and clinically. continue dexamethasone 6mg IV daily, complete 10 days Discussed in detail self-proning. Flutter valve/incentive cindy. O2 via NC to maintain O2 >90%, she is on 2L Mucinex BID. Combivent qid. No signs of secondary bacterial infection at this time. (2) Acute respiratory failure with hypoxia: 2nd COVID-19 pneumonia. See above. stable on 2L, try to wean as tolerated (3) CAD (coronary artery disease): h/o acute [place] 2015. Stents x 2 at that time; placed at Counts include [facility] beds at the [facility]. No ischemic symptoms at this time. Continue asa, statin, BB. (4) Mixed hyperlipidemia: AST minimally elevated today; likely 2nd to COVID-19. Will cont statin cautiously. AST trending down. (5) Essential (primary) hypertension: Cont coreg & lisinopril. (6) Elevated troponin: Likely myocardial demand ischemia in setting of acute hypoxic resp failure/COVID-19 pneumonia. Trops tending down. (7) History of lung cancer: LLL. s/p lobectomy in the past. (8) Elevated AST (SGOT): Likely 2nd COVID-19 infection. Trend. (9) DVT prophylaxis: Given high risk of VTE with COVID will place on BID lovenox. (10) Constipated: finally had a BM today add Senmarivel S qAM, drink lots of water Admission and Anticipated Discharge Date Admission Date: February 04, 2021 Subjective patient is doing okay, still feels very weak and gets short of breath with exertion she has concerns that she desaturates when walking, discussed that it is normal she is eating well, had a BM today she has a dry cough, wishes she could bring up sputum, discussed that viral pneumonia is more inflammation than mucous, will add Janette reviewed chart, she has been sick for two weeks labs stable today she remains on 2L at rest, hoping to come off oxygen soon she asked about her , discussed that he is doing well Review of Systems Review of Systems: All systems reviewed & are unremarkable except as noted in Subjective Respiratory: + cough and + dyspnea on exertion; no sputum production Cardiovascular: no chest pain and no edema Gastrointestinal: + constipation (finally had BM today); no abdominal pain, no nausea, no vomiting and no diarrhea/loose stools Physical Exam Constitutional: WD/WN, vitals as above Neck: trachea midline, no thyromegaly Respiratory: normal respiratory effort, lungs clear to auscultation Cardiovascular: RRR, no murmur, no edema Gastrointestinal (Abdomen): normal bowel sounds, soft, nontender, no hepatosplenomegaly Musculoskeletal: no cyanosis or clubbing, extremities motor strength 5/5 Skin: no rashes, warm and dry Neurologic: patellar DTR's 2+ bilat, sensation intact and PERRL, EOMI, accommodation nl, no face palsy, no dysarthria Psychiatric: A+Ox3, euthymic affect Lymphatic: no cervical or axillary lymphadenopathy Results & Data Results & Data ([facility]) Vital Signs (Past 12 Hours) Vital Signs Temp Pulse Pulse Resp BP Pulse Ox Pulse Ox 02/07/21 07:48 62 20 91 02/07/21 07:36 36.6 C 53 L 19 180/80 H 92 02/07/21 05:24 178/63 H 02/07/21 04:47 36.9 C 51 L 20 185/77 H 95 02/06/21 23:23 60 02/06/21 22:35 37.0 C 61 18 142/60 H 93 02/06/21 22:22 94 Laboratory Results Laboratory Results - last 24 hr 02/07/21 02/07/21 07:21 07:21 WBC 9.23 RBC 4.48 Hgb 13.1 Hct 39.4 MCV 87.9 MCH 29.2 MCHC 33.2 RDW Std Deviation 42.1 RDW Coeff of [place] 13.2 Plt Count 330 MPV 10.1 Sodium 143 Potassium 3.6 Chloride 109 H Carbon Dioxide 27 Anion Gap 6.0 BUN 19 H Creatinine 0.74 Est Cr Clr Drug Dosing 61.9 Est GFR ( Amer) 90.6 Est GFR (Non-Af Amer) 78.1 BUN/Creatinine Ratio 25.7 H Glucose 95 Calcium 9.0 NT-Pro-B Natriuret Pep 924 Medications Administered Current Inpatient Medications Acetaminophen (Acetaminophen 325 Mg Tab) 650 mg PO Q4H PRN PRN Reason: Pain or Fever Stop: 03/06/21 22:28 Albuterol (Albuterol Hfa 8 Gm Inhaler) 1 puffs INH Q4 PRN PRN Reason: Shortness Of Breath Or Wheezin Stop: 03/09/21 07:55 Aspirin (Aspirin 81 Mg Ectab) 81 mg PO DAILY [facility] Stop: 03/07/21 08:59 Last Admin: 02/07/21 08:26 Dose: 81 mg Documented by: Atorvastatin Calcium (Atorvastatin 40 Mg Tab) 40 mg PO DAILY [facility] Stop: 03/07/21 08:59 Last Admin: 02/07/21 08:25 Dose: 40 mg Documented by: Calcium Carbonate (Calcium Carbonate 500 Mg Chewable Tab) 500 mg PO Q4H PRN PRN Reason: Indigestion Stop: 03/08/21 21:55 Last Admin: 02/06/21 22:13 Dose: 500 mg Documented by: Carvedilol (Carvedilol 3.125 Mg Tab) 3.125 mg PO BID [facility] Stop: 03/06/21 22:28 Last Admin: 02/07/21 08:26 Dose: 3.125 mg Documented by: Enoxaparin Sodium (Enoxaparin Inj 40 Mg/0.4 Ml Syr) 40 mg SQ Q12H [facility] Stop: 03/07/21 07:59 Last Admin: 02/07/21 08:24 Dose: 40 mg Documented by: Famotidine (Famotidine 20 Mg Tab) 20 mg PO BID [facility] Stop: 03/06/21 22:28 Last Admin: 02/07/21 08:26 Dose: 20 mg Documented by: Guaifenesin (Guaifenesin 600 Mg Tabcr) 1,200 mg PO Q12 [facility] Stop: 03/06/21 22:28 Last Admin: 02/07/21 08:25 Dose: 1,200 mg Documented by: Dexamethasone 6 mg/ Syringe 1.5 mls @ 1 mls/min IV Q24H [facility] Stop: 02/14/21 08:59 Last Admin: 02/07/21 08:49 Dose: 1 mls/min Documented by: Ipratropium [place] (Ipratropium [place] Hfa Inhaler) 1 puffs INH Q4 PRN PRN Reason: Shortness Of Breath Or [place]ezin Stop: 03/09/21 07:55 Lisinopril (Lisinopril 20 Mg Tab) 20 mg PO DAILY [facility] Stop: 03/07/21 08:59 Last Admin: 02/07/21 08:26 Dose: 20 mg Documented by: Melatonin (Melatonin 3 Mg Tab) 3 mg PO HS PRN PRN Reason: Sleep Stop: 03/06/21 22:28 Last Admin: 02/06/21 21:30 Dose: 3 mg Documented by: Ondansetron HCl (Ondansetron Inj 2 Mg/Ml 2 Ml Vial) 4 mg IV Q6H PRN PRN Reason: Nausea Stop: 03/06/21 22:28 Polyethylene Glycol (Polyethylene (Miralax) 17 Gm Pack) 17 gm PO DAILY [facility] Stop: 03/07/21 08:59 Last Admin: 02/07/21 08:24 Dose: 17 gm Documented by: PG Care Time/CCT Total # of Minutes Spent Total Time Spent with Patient: Total time spent is greater than 50% in coordination of care (as documented) at patient's floor/unit and/or counseling patient: Coding Level of Care Code 03133 Subseq Hosp Care Lvl 2 Diagnoses Pneumonia due to COVID-19 virus U07.1; J12.82 Acute respiratory failure with hypoxia J96.01 CAD (coronary artery disease) I25.10 Associated angina: without angina Coronary Disease-Associated Artery/Lesion type: [place] artery [place] vs. transplanted heart: [place] heart Mixed hyperlipidemia E78.2 Essential (primary) hypertension I10 Elevated troponin R77.8 History of lung cancer Z85.118 Elevated AST (SGOT) R74.01 DVT prophylaxis Z29.9 Constipated K59.00 (1) CAD (coronary artery disease) Associated angina: without angina Coronary Disease-Associated Artery/Lesion type: [place] artery [place] vs. transplanted heart: [place] heart Qualified Code(s): I25.10 - Atherosclerotic heart disease of [place] coronary artery without angina pectoris
[2021-02-07] MEDS: DOCUSATE SODIUM/SENNA 50/8.6MG TAB PO SCH (12:18)
[2021-02-07] MEDS: MELATONIN 3 MG TAB PO PRN (21:41)
[2021-02-08] MEDS: carvediloL 3.125 MG TAB PO SCH ×3 (08:39→21:39)
[2021-02-08] MEDS: dexAMETHasone 6 MG in SYRINGE 0 ML IV SCH (08:39)
[2021-02-08] MEDS: ASPIRIN 81 MG ECTAB PO SCH (08:40)
[2021-02-08] MEDS: ATORVASTATIN 40 MG TAB PO SCH (08:40)
[2021-02-08] MEDS: FAMOTIDINE 20 MG TAB PO SCH ×2 (08:40→21:39)
[2021-02-08] MEDS: lisinopril 20 MG TAB PO SCH (08:40)
--- NOTE | 2021-02-08 08:40 | XRay Report ---
SINGLE VIEW CHEST CLINICAL HISTORY: Hypoxia. Covid pneumonia. FINDINGS: An AP, portable, upright chest radiograph is compared to study dated 02/04/2021 and correlate d with chest CT dated 07/21/2016. The heart is mildly enlarged noting atherosclerotic calcification of the thoracic aorta. The pulmonary vasculature is noncongested. Emphysema and chronic interstitial th ickening are similar to previous. There is postoperative change and volume loss consistent with previ ous left-sided resection. Multifocal patchy airspace consolidation is again seen in both lungs. No la rge pleural effusion or pneumothorax is seen. The skeletal structures are osteopenic. The bony thorax is grossly intact. IMPRESSION: 1. Cardiomegaly and emphysema with postoperative change from left-sided pulmonary resection. 2. Multifocal patchy airspace consolidation is similar to 02/04/2021 and consistent with the reported h istory of a viral pneumonia. ACT 112: Negative or not required by law. Electronically signed by: Klaus Lara M.D. 02/08/2021 8:39 AM
[2021-02-08] MEDS: ENOXAPARIN INJ 40 MG/0.4 ML SYR SQ SCH ×2 (08:41→21:38)
[2021-02-08] MEDS: guaiFENesin 600 MG TABCR PO SCH ×2 (08:41→21:39)
[2021-02-08] MEDS ORDERED: FUROSEMIDE 20 MG in SYRINGE 0 ML IV ONE (09:22)
[2021-02-08] MEDS ORDERED: POTASSIUM CHLORIDE CRTAB 20 MEQ TABCR PO STA (09:30)
[2021-02-08] MEDS ORDERED: FUROSEMIDE 40 MG/4 ML VIAL IV ONE (09:35)
--- NOTE | 2021-02-08 09:37 | Hospitalist Progress Note ---
Date of Service February 08, 2021 Assessment & Plan (1) Pneumonia due to COVID-19 virus: With resulting acute hypoxic resp failure. Moderate disease radiographically and clinically. continue dexamethasone 6mg IV daily, day 4 today Discussed in detail self-proning, explained she should do this 3-4x a day, helps prevent progression Flutter valve/incentive cindy, she is compliant Mucinex BID. Combivent qid. increased to 4L NC today, accessory muscle use while laying in bed will give Lasix 20mg IV x 1 today CXR today appears stable as far as infiltrates (2) Acute respiratory failure with hypoxia: 2nd COVID-19 pneumonia. See above. up to 4L, 90-91% and she desaturates with walking to toilet give Lasix 20mg IV to keep lungs dry, negative fluid balance have her lay prone several times today, try to sleep prone if possible (3) CAD (coronary artery disease): h/o acute [place] 2015. Stents x 2 at that time; placed at [facility]. No ischemic symptoms at this time. Continue asa, statin, BB. (4) Mixed hyperlipidemia: AST minimally elevated today; likely 2nd to COVID-19. Will cont statin cautiously. AST trending down. (5) Essential (primary) hypertension: Cont coreg & lisinopril. (6) Elevated troponin: Likely myocardial demand ischemia in setting of acute hypoxic resp failure/COVID-19 pneumonia. Trops tending down. (7) History of lung cancer: LLL. s/p lobectomy in the past. (8) Elevated AST (SGOT): Likely 2nd COVID-19 infection. Trend. (9) DVT prophylaxis: Given high risk of VTE with COVID will place on BID lovenox. (10) Constipated: finally had a BM on 02/07 add Senokot S qAM, drink lots of water Admission and Anticipated Discharge Date Admission Date: February 04, 2021 Subjective patient is feeling more short of breath today, she is concerned about lashell aturating when she walks to the bathroom explained that desaturating is normal she is using incentive spirometer and flutter valve, asked her to lay prone a few times today to help oxygenation she is eating and drinking really well, discussed that I will give a dose of Lasix 20mg IV no labs today obtained CXR this morning as oxygen up to 4L, no major changes on my read she is visiting with her this morning which makes her happy c/o lesions on her inner cheek, white plaques, not painful Review of Systems Review of Systems: All systems reviewed & are unremarkable except as noted in Subjective Physical Exam Constitutional: WD/WN, vitals as above Neck: trachea midline, no thyromegaly Respiratory: normal respiratory effort, lungs clear to auscultation Cardiovascular: RRR, no murmur, no edema Gastrointestinal (Abdomen): normal bowel sounds, soft, nontender, no hepatosplenomegaly Musculoskeletal: no cyanosis or clubbing, extremities motor strength 5/5 Skin: no rashes, warm and dry Neurologic: patellar DTR's 2+ bilat, sensation intact and PERRL, EOMI, accommodation nl, no face palsy, no dysarthria Psychiatric: A+Ox3, euthymic affect Lymphatic: no cervical or axillary lymphadenopathy Results & Data Results & Data ([facility]) Vital Signs (Past 12 Hours) Vital Signs Temp Pulse Pulse Resp BP Pulse Ox 02/08/21 07:41 36.7 C 55 L 19 163/77 H 94 02/08/21 04:00 36.7 C 57 L 20 155/72 H 92 02/08/21 02:25 49 L 02/07/21 23:27 36.8 C 58 L 20 159/79 H 93 Medications Administered Current Inpatient Medications Acetaminophen (Acetaminophen 325 Mg Tab) 650 mg PO Q4H PRN PRN Reason: Pain or Fever Stop: 03/06/21 22:28 Albuterol (Albuterol Hfa 8 Gm Inhaler) 1 puffs INH Q4 PRN PRN Reason: Shortness Of Breath Or Wheezin Stop: 03/09/21 07:55 Aspirin (Aspirin 81 Mg Ectab) 81 mg PO DAILY [facility] Stop: 03/07/21 08:59 Last Admin: 02/08/21 08:40 Dose: 81 mg Documented by: Atorvastatin Calcium (Atorvastatin 40 Mg Tab) 40 mg PO DAILY [facility] Stop: 03/07/21 08:59 Last Admin: 02/08/21 08:40 Dose: 40 mg Documented by: Calcium Carbonate (Calcium Carbonate 500 Mg Chewable Tab) 500 mg PO Q4H PRN PRN Reason: Indigestion Stop: 03/08/21 21:55 Last Admin: 02/06/21 22:13 Dose: 500 mg Documented by: Carvedilol (Carvedilol 3.125 Mg Tab) 3.125 mg PO BID [facility] Stop: 03/06/21 22:28 Last Admin: 02/08/21 08:39 Dose: Not Given Documented by: Enoxaparin Sodium (Enoxaparin Inj 40 Mg/0.4 Ml Syr) 40 mg SQ Q12H [facility] Stop: 03/07/21 07:59 Last Admin: 02/08/21 08:41 Dose: 40 mg Documented by: Famotidine (Famotidine 20 Mg Tab) 20 mg PO BID [facility] Stop: 03/06/21 22:28 Last Admin: 02/08/21 08:40 Dose: 20 mg Documented by: Guaifenesin (Guaifenesin 600 Mg Tabcr) 1,200 mg PO Q12 [facility] Stop: 03/06/21 22:28 Last Admin: 02/08/21 08:41 Dose: 1,200 mg Documented by: Guaifenesin/Codeine Phosphate (Guaifenesin/Codeine 200mg/20mg 10ml Udc) 10 ml PO Q6H PRN PRN Reason: Cough Stop: 03/09/21 10:30 Last Admin: 02/07/21 21:42 Dose: 10 ml Documented by: Dexamethasone 6 mg/ Syringe 1.5 mls @ 1 mls/min IV Q24H [facility] Stop: 02/14/21 08:59 Last Admin: 02/08/21 08:39 Dose: 1 mls/min Documented by: Ipratropium [place] (Ipratropium [place] Hfa Inhaler) 1 puffs INH Q4 PRN PRN Reason: Shortness Of Breath Or Wheezin Stop: 03/09/21 07:55 Lisinopril (Lisinopril 20 Mg Tab) 20 mg PO DAILY [facility] Stop: 03/07/21 08:59 Last Admin: 02/08/21 08:40 Dose: 20 mg Documented by: Melatonin (Melatonin 3 Mg Tab) 3 mg PO HS PRN PRN Reason: Sleep Stop: 03/06/21 22:28 Last Admin: 02/07/21 21:41 Dose: 3 mg Documented by: Nystatin (Nystatin Susp 500,000 U/5 Ml Udc) 5 ml PO QID [facility] Stop: 02/18/21 12:59 Ondansetron HCl (Ondansetron Inj 2 Mg/Ml 2 Ml Vial) 4 mg IV Q6H PRN PRN Reason: Nausea Stop: 03/06/21 22:28 Polyethylene Glycol (Polyethylene (Miralax) 17 Gm Pack) 17 gm PO DAILY [facility] Stop: 03/07/21 08:59 Last Admin: 02/07/21 08:24 Dose: 17 gm Documented by: Senna/Docusate Sodium (Docusate Sodium/Senna 50/8.6mg Tab) 1 tab PO QAM [facility] Stop: 03/09/21 10:44 Last Admin: 02/07/21 12:18 Dose: 1 tab Documented by: PG Care Time/CCT Total # of Minutes Spent Total Time Spent with Patient: Total time spent is greater than 50% in coordination of care (as documented) at patient's floor/unit and/or counseling patient: Coding Level of Care Code 74667 Subseq Hosp Care Lvl 3 Diagnoses Pneumonia due to COVID-19 virus U07.1; J12.82 Acute respiratory failure with hypoxia J96.01 CAD (coronary artery disease) I25.10 Coronary Disease-Associated Artery/Lesion type: [place] artery [place] vs. transplanted heart: [place] heart Associated angina: without angina Mixed hyperlipidemia E78.2 Essential (primary) hypertension I10 Elevated troponin R77.8 History of lung cancer Z85.118 Elevated AST (SGOT) R74.01 DVT prophylaxis Z29.9 Constipated K59.00 (1) CAD (coronary artery disease) Coronary Disease-Associated Artery/Lesion type: [place] artery [place] vs. transplanted heart: [place] heart Associated angina: without angina Qualified Code(s): I25.10 - Atherosclerotic heart disease of [place] coronary artery without angina pectoris
[2021-02-08] MEDS: DOCUSATE SODIUM/SENNA 50/8.6MG TAB PO SCH (10:09)
[2021-02-08] MEDS: POLYETHYLENE (MIRALAX) 17 GM PACK PO SCH (10:09)
[2021-02-08] MEDS: NYSTATIN SUSP 500,000 U/5 ML UDC PO SCH ×3 (14:26→21:39)
[2021-02-08] MEDS ORDERED: SODIUM CHLORIDE 0.65% NA SOLN 45 ML (OCEAN) ONE (20:18)
[2021-02-08] MEDS: MELATONIN 3 MG TAB PO PRN (21:39)
[2021-02-09 07:12] LABS: Hematocrit (blood only) 40.7 % (37-47); Hemoglobin 14.1 g/dL (12.0-16.0); Mean Corpuscular Hemoglobin 30.3 pg (25-34); Mean Corpuscular Hgb Conc 34.6 g/dL (32-36); Mean Corpuscular Volume 87.3 fL (80-100); Mean Platelet Volume 10.1 fL (7.4-10.4); Platelet Count 393 K/uL (130-400); RDW Standard Deviation 41.6 fL (36.4-46.3); Red Blood Count 4.66 M/uL (4.2-5.4)
[2021-02-09 07:45] LABS: BUN Creatinine Ratio 36.6 (10-20); C Reactive Protein 0.75 mg/dl (0-0.29); Calcium 9.1 mg/dl (8.5-10.1); Creatinine Clr Calc Pharmacy 60.3 ml/min; Est GFR (African American) 87.7; Est GFR (Non-African American) 75.7; Magnesium 2.2 mg/dl (1.8-2.4); Potassium 3.9 mmol/L (3.5-5.1)
[2021-02-09] MEDS ORDERED: POTASSIUM CHLORIDE CRTAB 20 MEQ TABCR PO STA (08:29)
[2021-02-09] MEDS: ASPIRIN 81 MG ECTAB PO SCH (08:54)
[2021-02-09] MEDS: dexAMETHasone 6 MG in SYRINGE 0 ML IV SCH (08:54)
[2021-02-09] MEDS: carvediloL 3.125 MG TAB PO SCH ×2 (08:54→20:56)
[2021-02-09] MEDS: ATORVASTATIN 40 MG TAB PO SCH (08:54)
[2021-02-09] MEDS: lisinopril 20 MG TAB PO SCH (08:54)
[2021-02-09] MEDS: ENOXAPARIN INJ 40 MG/0.4 ML SYR SQ SCH ×2 (08:55→20:57)
[2021-02-09] MEDS: POLYETHYLENE (MIRALAX) 17 GM PACK PO SCH (08:55)
[2021-02-09] MEDS: FAMOTIDINE 20 MG TAB PO SCH ×2 (08:55→20:58)
[2021-02-09] MEDS: DOCUSATE SODIUM/SENNA 50/8.6MG TAB PO SCH (08:56)
[2021-02-09] MEDS: NYSTATIN SUSP 500,000 U/5 ML UDC PO SCH ×4 (08:56→20:56)
[2021-02-09] MEDS: guaiFENesin 600 MG TABCR PO SCH ×2 (08:56→20:58)
[2021-02-09] MEDS ORDERED: FUROSEMIDE 20 MG in SYRINGE 0 ML IV ONE (09:00)
[2021-02-09] MEDS ORDERED: FUROSEMIDE 40 MG/4 ML VIAL IV ONE (09:01)
--- NOTE | 2021-02-09 10:55 | Hospitalist Progress Note ---
Date of Service February 09, 2021 Assessment & Plan (1) Pneumonia due to COVID-19 virus: With resulting acute hypoxic resp failure. Moderate disease radiographically and clinically. continue dexamethasone 6mg IV daily, day 5 today Discussed in detail self-proning, explained she should do this 3-4x a day, helps prevent progression when prone she is 97% on 4L Flutter valve/incentive cindy, she is compliant Mucinex BID. Combivent qid. stable on 4L NC today, accessory muscle use while laying in bed CXR 02/08 appears stable as far as infiltrates good response to Lasix 20mg IV daily, will continue and follow Cr (2) Acute respiratory failure with hypoxia: 2nd COVID-19 pneumonia. See above. stable on 4L, 90-91% and she desaturates with walking to toilet up to 97% when laying prone give Lasix 20mg IV daily to keep lungs dry, negative fluid balance have her lay prone several times today, try to sleep prone if possible (3) CAD (coronary artery disease): h/o acute [place] 2015. Stents x 2 at that time; placed at [facility]. No ischemic symptoms at this time. Continue asa, statin, BB. (4) Mixed hyperlipidemia: (5) Essential (primary) hypertension: Cont coreg & lisinopril. (6) Elevated troponin: Likely myocardial demand ischemia in setting of acute hypoxic resp failure/COVID-19 pneumonia. Trops tending down. (7) History of lung cancer: LLL. s/p lobectomy in the past. (8) Elevated AST (SGOT): Likely 2nd COVID-19 infection. going down (9) DVT prophylaxis: Given high risk of VTE with COVID will place on BID lovenox. (10) Constipated: finally had a BM on 02/07 add Senokot S qAM, drink lots of water Admission and Anticipated Discharge Date Admission Date: February 04, 2021 Subjective patient still feels short of breath, still on 4L, she is worried because she is not feeling better yet encouraged her to be patient, this is typical course, she just needs more time, likely through the weekend her is going home today she is eating and drinking well, responded well to Lasix 20mg IV yesterday and Cr is stable, gave another dose this morning she is compliant with laying prone, saturations go up to 97% when on her stomach she is working on having a bowel movement she is weak but having no issues walking to the bathroom and back labs reviewed, WBC normal, ESR 22, K 3.9, Cr 0.76, CRP is only 0.75 which is reassuring spoke with her and her son Grabiel on the phone, assured them that she will get better, just needs time Review of Systems Review of Systems: All systems reviewed & are unremarkable except as noted in Subjective Constitutional: + fatigue and + weakness; no fever Respiratory: + cough, + dyspnea and + dyspnea on exertion; no sputum production Cardiovascular: no chest pain, no palpitations and no edema Gastrointestinal: + constipation; no abdominal pain, no nausea, no vomiting and no diarrhea/loose stools Physical Exam Constitutional: WD/WN, vitals as above Neck: trachea midline, no thyromegaly Respiratory: + uses accessory muscles, + cough and + tachypneic; no respiratory distress Auscultation: lungs clear to auscultation bilaterally Cardiovascular: RRR, no murmur, no edema Gastrointestinal (Abdomen): normal bowel sounds, soft, nontender, no hepatosplenomegaly Musculoskeletal: no cyanosis or clubbing, extremities motor strength 5/5 Skin: no rashes, warm and dry Neurologic: patellar DTR's 2+ bilat, sensation intact and PERRL, EOMI, accommodation nl, no face palsy, no dysarthria Psychiatric: A+Ox3, euthymic affect Lymphatic: no cervical or axillary lymphadenopathy Results & Data Results & Data ([facility]) Vital Signs (Past 12 Hours) Vital Signs Temp Pulse Pulse Resp BP Pulse Ox 02/09/21 07:17 36.4 C L 61 19 151/68 H 90 02/09/21 04:00 36.9 C 58 L 19 129/67 93 02/08/21 23:51 36.5 C 57 L 20 136/79 93 02/08/21 23:32 52 L Laboratory Results Laboratory Results - last 24 hr 02/09/21 02/09/21 02/09/21 06:43 06:43 06:43 WBC 9.50 RBC 4.66 Hgb 14.1 Hct 40.7 MCV 87.3 MCH 30.3 MCHC 34.6 RDW Std Deviation 41.6 RDW Coeff of Chapo 13.0 Plt Count 393 MPV 10.1 ESR 22 H Sodium 140 Potassium 3.9 Chloride 105 Carbon Dioxide 29 Anion Gap 6.0 BUN 28 H Creatinine 0.76 Est Cr Clr Drug Dosing 60.3 Est GFR ( Amer) 87.7 Est GFR (Non-Af Amer) 75.7 BUN/Creatinine Ratio 36.6 H Glucose 84 Calcium 9.1 Magnesium 2.2 C-Reactive Protein 0.75 H Medications Administered Current Inpatient Medications Acetaminophen (Acetaminophen 325 Mg Tab) 650 mg PO Q4H PRN PRN Reason: Pain or Fever Stop: 03/06/21 22:28 Albuterol (Albuterol Hfa 8 Gm Inhaler) 1 puffs INH Q4 PRN PRN Reason: Shortness Of Breath Or Wheezin Stop: 03/09/21 07:55 Aspirin (Aspirin 81 Mg Ectab) 81 mg PO DAILY [facility] Stop: 03/07/21 08:59 Last Admin: 02/09/21 08:54 Dose: 81 mg Documented by: Atorvastatin Calcium (Atorvastatin 40 Mg Tab) 40 mg PO DAILY [facility] Stop: 03/07/21 08:59 Last Admin: 02/09/21 08:54 Dose: 40 mg Documented by: Calcium Carbonate (Calcium Carbonate 500 Mg Chewable Tab) 500 mg PO Q4H PRN PRN Reason: Indigestion Stop: 03/08/21 21:55 Last Admin: 02/06/21 22:13 Dose: 500 mg Documented by: Carvedilol (Carvedilol 3.125 Mg Tab) 3.125 mg PO BID [facility] Stop: 03/06/21 22:28 Last Admin: 02/09/21 08:54 Dose: 3.125 mg Documented by: Enoxaparin Sodium (Enoxaparin Inj 40 Mg/0.4 Ml Syr) 40 mg SQ Q12H [facility] Stop: 03/07/21 07:59 Last Admin: 02/09/21 08:55 Dose: 40 mg Documented by: Famotidine (Famotidine 20 Mg Tab) 20 mg PO BID [facility] Stop: 03/06/21 22:28 Last Admin: 02/09/21 08:55 Dose: 20 mg Documented by: Guaifenesin (Guaifenesin 600 Mg Tabcr) 1,200 mg PO Q12 [facility] Stop: 03/06/21 22:28 Last Admin: 02/09/21 08:56 Dose: 1,200 mg Documented by: Guaifenesin/Codeine Phosphate (Guaifenesin/Codeine 200mg/20mg 10ml Udc) 10 ml PO Q6H PRN PRN Reason: Cough Stop: 03/09/21 10:30 Last Admin: 02/07/21 21:42 Dose: 10 ml Documented by: Dexamethasone 6 mg/ Syringe 1.5 mls @ 1 mls/min IV Q24H [facility] Stop: 02/14/21 08:59 Last Admin: 02/09/21 08:54 Dose: 1 mls/min Documented by: Ipratropium [place] (Ipratropium [place] Hfa Inhaler) 1 puffs INH Q4 PRN PRN Reason: Shortness Of Breath Or Wheezin Stop: 03/09/21 07:55 Lisinopril (Lisinopril 20 Mg Tab) 20 mg PO DAILY [facility] Stop: 03/07/21 08:59 Last Admin: 02/09/21 08:54 Dose: 20 mg Documented by: Melatonin (Melatonin 3 Mg Tab) 3 mg PO HS PRN PRN Reason: Sleep Stop: 03/06/21 22:28 Last Admin: 02/08/21 21:39 Dose: 3 mg Documented by: Nystatin (Nystatin Susp 500,000 U/5 Ml Udc) 5 ml PO QID [facility] Stop: 02/18/21 12:59 Last Admin: 02/09/21 08:56 Dose: 5 ml Documented by: Ondansetron HCl (Ondansetron Inj 2 Mg/Ml 2 Ml Vial) 4 mg IV Q6H PRN PRN Reason: Nausea Stop: 03/06/21 22:28 Polyethylene Glycol (Polyethylene (Miralax) 17 Gm Pack) 17 gm PO DAILY [facility] Stop: 03/07/21 08:59 Last Admin: 02/09/21 08:55 Dose: 17 gm Documented by: Senna/Docusate Sodium (Docusate Sodium/Senna 50/8.6mg Tab) 1 tab PO QAM [facility] Stop: 03/09/21 10:44 Last Admin: 02/09/21 08:56 Dose: 1 tab Documented by: PG Care Time/CCT Total # of Minutes Spent Total Time Spent: 32 Total Time Spent with Patient: Total time spent is greater than 50% in coordination of care (as documented) at patient's floor/unit and/or counseling patient: Coding Level of Care Code 82777 Subseq Hosp Care Lvl 3 Diagnoses Pneumonia due to COVID-19 virus U07.1; J12.82 Acute respiratory failure with hypoxia J96.01 CAD (coronary artery disease) I25.10 Coronary Disease-Associated Artery/Lesion type: [place] artery [place] vs. transplanted heart: [place] heart Associated angina: without angina Mixed hyperlipidemia E78.2 Essential (primary) hypertension I10 Elevated troponin R77.8 History of lung cancer Z85.118 Elevated AST (SGOT) R74.01 DVT prophylaxis Z29.9 Constipated K59.00 (1) CAD (coronary artery disease) Coronary Disease-Associated Artery/Lesion type: [place] artery [place] vs. transplanted heart: [place] heart Associated angina: without angina Qualified Code(s): I25.10 - Atherosclerotic heart disease of [place] coronary artery without angina pectoris
[2021-02-09] MEDS ORDERED: SIMETHICONE 80 MG CHEW PO ONE (17:45)
[2021-02-10] MEDS: lisinopril 20 MG TAB PO SCH (08:07)
[2021-02-10] MEDS: carvediloL 3.125 MG TAB PO SCH ×2 (08:08→20:40)
[2021-02-10] MEDS: FAMOTIDINE 20 MG TAB PO SCH ×2 (08:09→20:41)
[2021-02-10] MEDS: ASPIRIN 81 MG ECTAB PO SCH (08:09)
[2021-02-10] MEDS: ATORVASTATIN 40 MG TAB PO SCH (08:09)
[2021-02-10] MEDS: dexAMETHasone 6 MG in SYRINGE 0 ML IV SCH (08:10)
[2021-02-10] MEDS: guaiFENesin 600 MG TABCR PO SCH ×2 (08:10→20:40)
[2021-02-10] MEDS: POLYETHYLENE (MIRALAX) 17 GM PACK PO SCH (08:11)
[2021-02-10] MEDS: ENOXAPARIN INJ 40 MG/0.4 ML SYR SQ SCH ×2 (08:11→20:39)
[2021-02-10] MEDS: NYSTATIN SUSP 500,000 U/5 ML UDC PO SCH ×4 (08:11→20:41)
[2021-02-10] MEDS: DOCUSATE SODIUM/SENNA 50/8.6MG TAB PO SCH (08:12)
[2021-02-10 08:57] LABS: BUN Creatinine Ratio 38.5 (10-20); Calcium 9.3 mg/dl (8.5-10.1); Creatinine Clr Calc Pharmacy 69.4 ml/min; Est GFR (African American) 98.8; Est GFR (Non-African American) 85.2; Magnesium 2.4 mg/dl (1.8-2.4); Potassium 4.2 mmol/L (3.5-5.1)
--- NOTE | 2021-02-10 16:24 | Hospitalist Progress Note ---
Date of Service February 10, 2021 Assessment & Plan (1) Pneumonia due to COVID-19 virus: With resulting acute hypoxic resp failure. Moderate disease radiographically and clinically. continue dexamethasone 6mg IV daily, day 6 today Discussed in detail self-proning, explained she should do this 3-4x a day, helps prevent progression when prone she is 97% on 4L she is 90-93% when laying flat Flutter valve/incentive cindy, she is compliant Mucinex BID. Combivent qid. continues to be stable on 4L NC, no accessory muscle use CXR 02/08 appears stable as far as infiltrates good response to Lasix 20mg IV on 02/09, no need to repeat today (2) Acute respiratory failure with hypoxia: 2nd COVID-19 pneumonia. See above. stable on 4L, 90-93% up to 97% when laying prone have her lay prone several times today, try to sleep prone if possible (3) CAD (coronary artery disease): h/o acute [place] 2015. Stents x 2 at that time; placed at [facility]. No ischemic symptoms at this time. Continue asa, statin, BB. (4) Mixed hyperlipidemia: AST minimally elevated today; likely 2nd to COVID-19. Will cont statin cautiously. AST trending down. (5) Essential (primary) hypertension: Cont coreg & lisinopril. (6) Elevated troponin: Likely myocardial demand ischemia in setting of acute hypoxic resp failure/COVID-19 pneumonia. Trops tending down. (7) History of lung cancer: LLL. s/p lobectomy in the past. (8) Elevated AST (SGOT): Likely 2nd COVID-19 infection. going down (9) DVT prophylaxis: Given high risk of VTE with COVID will place on BID lovenox. (10) Constipated: finally had a BM on 02/07 add Senokot S qAM, drink lots of water Admission and Anticipated Discharge Date Admission Date: February 04, 2021 Subjective patient doing well today, breathing stable on 4L, laying on her side and laying prone a lot still gets short of breath on exertion and desaturates but recovers quickly she is eating reasonably well, no fever, no diarrhea, no nausea, no chest pain, no cough reviewed labs, K and Cr stable updated her son over the phone, discussed that she will likely be here over the weekend Review of Systems Review of Systems: All systems reviewed & are unremarkable except as noted in Subjective Physical Exam Constitutional: WD/WN, vitals as above Neck: trachea midline, no thyromegaly Respiratory: normal respiratory effort; no respiratory distress, no labored breathing and no cough Auscultation: lungs clear to auscultation bilaterally Cardiovascular: RRR, no murmur, no edema Gastrointestinal (Abdomen): normal bowel sounds, soft, nontender, no hepatosplenomegaly Musculoskeletal: no cyanosis or clubbing, extremities motor strength 5/5 Skin: no rashes, warm and dry Neurologic: patellar DTR's 2+ bilat, sensation intact and PERRL, EOMI, accommodation nl, no face palsy, no dysarthria Psychiatric: A+Ox3, euthymic affect Lymphatic: no cervical or axillary lymphadenopathy Results & Data Results & Data ([facility]) Vital Signs (Past 12 Hours) Vital Signs Temp Pulse Pulse Resp BP Pulse Ox 02/10/21 15:51 36.4 C L 67 21 122/99 90 02/10/21 10:58 36.6 C 67 22 126/55 L 91 02/10/21 07:59 57 L 02/10/21 07:23 36.7 C 66 21 131/52 L 91 Laboratory Results Laboratory Results - last 24 hr 02/10/21 07:18 Sodium 139 Potassium 4.2 Chloride 105 Carbon Dioxide 28 Anion Gap 6.0 BUN 25 H Creatinine 0.66 Est Cr Clr Drug Dosing 69.4 Est GFR ( Amer) 98.8 Est GFR (Non-Af Amer) 85.2 BUN/Creatinine Ratio 38.5 H Glucose 79 Calcium 9.3 Magnesium 2.4 Medications Administered Current Inpatient Medications Acetaminophen (Acetaminophen 325 Mg Tab) 650 mg PO Q4H PRN PRN Reason: Pain or Fever Stop: 03/06/21 22:28 Albuterol (Albuterol Hfa 8 Gm Inhaler) 1 puffs INH Q4 PRN PRN Reason: Shortness Of Breath Or Wheezin Stop: 03/09/21 07:55 Aspirin (Aspirin 81 Mg Ectab) 81 mg PO DAILY [facility] Stop: 03/07/21 08:59 Last Admin: 02/10/21 08:09 Dose: 81 mg Documented by: Atorvastatin Calcium (Atorvastatin 40 Mg Tab) 40 mg PO DAILY [facility] Stop: 03/07/21 08:59 Last Admin: 02/10/21 08:09 Dose: 40 mg Documented by: Calcium Carbonate (Calcium Carbonate 500 Mg Chewable Tab) 500 mg PO Q4H PRN PRN Reason: Indigestion Stop: 03/08/21 21:55 Last Admin: 02/06/21 22:13 Dose: 500 mg Documented by: Carvedilol (Carvedilol 3.125 Mg Tab) 3.125 mg PO BID [facility] Stop: 03/06/21 22:28 Last Admin: 02/10/21 08:08 Dose: 3.125 mg Documented by: Enoxaparin Sodium (Enoxaparin Inj 40 Mg/0.4 Ml Syr) 40 mg SQ Q12H [facility] Stop: 03/07/21 07:59 Last Admin: 02/10/21 08:11 Dose: 40 mg Documented by: Famotidine (Famotidine 20 Mg Tab) 20 mg PO BID [facility] Stop: 03/06/21 22:28 Last Admin: 02/10/21 08:09 Dose: 20 mg Documented by: Guaifenesin (Guaifenesin 600 Mg Tabcr) 1,200 mg PO Q12 [facility] Stop: 03/06/21 22:28 Last Admin: 02/10/21 08:10 Dose: 1,200 mg Documented by: Guaifenesin/Codeine Phosphate (Guaifenesin/Codeine 200mg/20mg 10ml Udc) 10 ml PO Q6H PRN PRN Reason: Cough Stop: 03/09/21 10:30 Last Admin: 02/07/21 21:42 Dose: 10 ml Documented by: Dexamethasone 6 mg/ Syringe 1.5 mls @ 1 mls/min IV Q24H [facility] Stop: 02/14/21 08:59 Last Admin: 02/10/21 08:10 Dose: 1 mls/min Documented by: Ipratropium [place] (Ipratropium [place] Hfa Inhaler) 1 puffs INH Q4 PRN PRN Reason: Shortness Of Breath Or [place]ezin Stop: 03/09/21 07:55 Lisinopril (Lisinopril 20 Mg Tab) 20 mg PO DAILY [facility] Stop: 03/07/21 08:59 Last Admin: 02/10/21 08:07 Dose: 20 mg Documented by: Melatonin (Melatonin 3 Mg Tab) 3 mg PO HS PRN PRN Reason: Sleep Stop: 03/06/21 22:28 Last Admin: 02/08/21 21:39 Dose: 3 mg Documented by: Nystatin (Nystatin Susp 500,000 U/5 Ml Ud) 5 ml PO QID [facility] Stop: 02/18/21 12:59 Last Admin: 02/10/21 13:31 Dose: 5 ml Documented by: Ondansetron HCl (Ondansetron Inj 2 Mg/Ml 2 Ml Vial) 4 mg IV Q6H PRN PRN Reason: Nausea Stop: 03/06/21 22:28 Polyethylene Glycol (Polyethylene (Miralax) 17 Gm Pack) 17 gm PO DAILY [facility] Stop: 03/07/21 08:59 Last Admin: 02/10/21 08:11 Dose: Not Given Documented by: Senna/Docusate Sodium (Docusate Sodium/Senna 50/8.6mg Tab) 1 tab PO QAM [facility] Stop: 03/09/21 10:44 Last Admin: 02/10/21 08:12 Dose: 1 tab Documented by: PG Care Time/CCT Total # of Minutes Spent Total Time Spent with Patient: Total time spent is greater than 50% in coordination of care (as documented) at patient's floor/unit and/or counseling patient: Coding Level of Care Code 89231 Subseq Hosp Care Lvl 2 Diagnoses Pneumonia due to COVID-19 virus U07.1; J12.82 Acute respiratory failure with hypoxia J96.01 CAD (coronary artery disease) I25.10 Associated angina: without angina Coronary Disease-Associated Artery/Lesion type: [place] artery [place] vs. transplanted heart: [place] heart Mixed hyperlipidemia E78.2 Essential (primary) hypertension I10 Elevated troponin R77.8 History of lung cancer Z85.118 Elevated AST (SGOT) R74.01 DVT prophylaxis Z29.9 Constipated K59.00 (1) CAD (coronary artery disease) Associated angina: without angina Coronary Disease-Associated Artery/Lesion type: [place] artery [place] vs. transplanted heart: [place] heart Qualified Code(s): I25.10 - Atherosclerotic heart disease of [place] coronary artery without angina pectoris
[2021-02-11] MEDS ORDERED: FUROSEMIDE 20 MG in SYRINGE 0 ML IV ONE (07:45)
[2021-02-11] MEDS: carvediloL 3.125 MG TAB PO SCH ×2 (08:42→20:11)
[2021-02-11] MEDS: FAMOTIDINE 20 MG TAB PO SCH ×2 (08:43→20:10)
[2021-02-11] MEDS: guaiFENesin 600 MG TABCR PO SCH ×2 (08:44→20:10)
[2021-02-11] MEDS: ASPIRIN 81 MG ECTAB PO SCH (08:45)
[2021-02-11] MEDS: dexAMETHasone 6 MG in SYRINGE 0 ML IV SCH (08:45)
[2021-02-11] MEDS: POLYETHYLENE (MIRALAX) 17 GM PACK PO SCH (08:46)
[2021-02-11] MEDS: ENOXAPARIN INJ 40 MG/0.4 ML SYR SQ SCH ×2 (08:46→20:09)
[2021-02-11] MEDS: NYSTATIN SUSP 500,000 U/5 ML UDC PO SCH ×4 (08:46→20:11)
[2021-02-11] MEDS: DOCUSATE SODIUM/SENNA 50/8.6MG TAB PO SCH (08:47)
[2021-02-11] MEDS: lisinopril 20 MG TAB PO SCH (08:47)
[2021-02-11] MEDS: ATORVASTATIN 40 MG TAB PO SCH (08:47)
--- NOTE | 2021-02-11 08:50 | XRay Report ---
XR chest 1V portable CLINICAL HISTORY: hypoxemia, COVID COMPARISON STUDY: Chest radiograph February 09, 2016. FINDINGS: Postoperative findings within the left hemithorax with volume loss and elevation of the lef t hemidiaphragm are again noted. Cardiac size is normal. Mediastinal contours are unremarkable. There is no pneumothorax or pleural effusion. Moderate multifocal bilateral airspace opacities are present . Slight progression is noted. IMPRESSION: Slight progression of moderate multifocal bilateral airspace opacities suggestive of vir al pneumonia. ACT 112: Negative or not required by law. Electronically signed by: Jin Altamirano M.D. 02/11/2021 8:48 AM
--- NOTE | 2021-02-11 11:48 | Hospitalist Progress Note ---
Date of Service February 11, 2021 Assessment & Plan (1) Pneumonia due to COVID-19 virus: With resulting acute hypoxic resp failure. Moderate disease radiographically and clinically. continue dexamethasone 6mg IV daily, day 7 today Discussed in detail self-proning, explained she should do this 3-4x a day, helps prevent progression when prone she is high 90's on 4L Flutter valve/incentive cindy, she is compliant Mucinex BID. Combivent qid. continues to be stable on 4L NC, no accessory muscle use CXR 02/11 with slight progression of infiltrates (2) Acute respiratory failure with hypoxia: 2nd COVID-19 pneumonia. See above. stable on 4L, 90-93% up to 97% when laying prone have her lay prone several times today, try to sleep prone if possible (3) CAD (coronary artery disease): h/o acute [place] 2015. Stents x 2 at that time; placed at [facility]. No ischemic symptoms at this time. Continue asa, statin, BB. (4) Mixed hyperlipidemia: AST minimally elevated today; likely 2nd to COVID-19. Will cont statin cautiously. AST trending down. (5) Essential (primary) hypertension: Cont coreg & lisinopril. (6) Elevated troponin: Likely myocardial demand ischemia in setting of acute hypoxic resp failure/COVID-19 pneumonia. Trops tending down. (7) History of lung cancer: LLL. s/p lobectomy in the past. (8) Elevated AST (SGOT): Likely 2nd COVID-19 infection. going down (9) DVT prophylaxis: Given high risk of VTE with COVID will place on BID lovenox. (10) Constipated: finally had a BM on 02/07 add Senokot S qAM, drink lots of water Admission and Anticipated Discharge Date Admission Date: February 04, 2021 Subjective patient still says she feels weak and fatigued, she is frustrated because she just wants to feel better I assured her that one of these days she will just feel better her oxygen levels are stable, 4-5L, she desaturates walking to bathroom but recovers in a minute no labs today vitals stable, no fever, she is compliant with laying prone I will update her son later today Review of Systems Review of Systems: All systems reviewed & are unremarkable except as noted in Subjective Physical Exam Constitutional: WD/WN, vitals as above Neck: trachea midline, no thyromegaly Respiratory: normal respiratory effort, lungs clear to auscultation normal respiratory effort; no respiratory distress, no labored breathing and no cough Auscultation: lungs clear to auscultation bilaterally Cardiovascular: RRR, no murmur, no edema Gastrointestinal (Abdomen): normal bowel sounds, soft, nontender, no hepatosplenomegaly Musculoskeletal: no cyanosis or clubbing, extremities motor strength 5/5 Skin: no rashes, warm and dry Neurologic: patellar DTR's 2+ bilat, sensation intact and PERRL, EOMI, accommodation nl, no face palsy, no dysarthria Psychiatric: A+Ox3, euthymic affect Lymphatic: no cervical or axillary lymphadenopathy Results & Data Results & Data ([facility]) Vital Signs (Past 12 Hours) Vital Signs Temp Pulse Pulse Resp BP Pulse Ox 02/11/21 11:08 69 19 107/68 93 02/11/21 08:33 53 L 02/11/21 08:06 36.8 C 58 L 20 123/60 92 02/11/21 03:42 36.4 C L 52 L 19 122/59 L 94 02/11/21 00:18 55 L 02/10/21 23:50 36.8 C 84 19 138/60 90 Medications Administered Current Inpatient Medications Acetaminophen (Acetaminophen 325 Mg Tab) 650 mg PO Q4H PRN PRN Reason: Pain or Fever Stop: 03/06/21 22:28 Albuterol (Albuterol Hfa 8 Gm Inhaler) 1 puffs INH Q4 PRN PRN Reason: Shortness Of Breath Or Wheezin Stop: 03/09/21 07:55 Aspirin (Aspirin 81 Mg Ectab) 81 mg PO DAILY [facility] Stop: 03/07/21 08:59 Last Admin: 02/11/21 08:45 Dose: 81 mg Documented by: Atorvastatin Calcium (Atorvastatin 40 Mg Tab) 40 mg PO DAILY [facility] Stop: 03/07/21 08:59 Last Admin: 02/11/21 08:47 Dose: 40 mg Documented by: Calcium Carbonate (Calcium Carbonate 500 Mg Chewable Tab) 500 mg PO Q4H PRN PRN Reason: Indigestion Stop: 03/08/21 21:55 Last Admin: 02/06/21 22:13 Dose: 500 mg Documented by: Carvedilol (Carvedilol 3.125 Mg Tab) 3.125 mg PO BID [facility] Stop: 03/06/21 22:28 Last Admin: 02/11/21 08:42 Dose: 3.125 mg Documented by: Enoxaparin Sodium (Enoxaparin Inj 40 Mg/0.4 Ml Syr) 40 mg SQ Q12H [facility] Stop: 03/07/21 07:59 Last Admin: 02/11/21 08:46 Dose: 40 mg Documented by: Famotidine (Famotidine 20 Mg Tab) 20 mg PO BID [facility] Stop: 03/06/21 22:28 Last Admin: 02/11/21 08:43 Dose: 20 mg Documented by: Guaifenesin (Guaifenesin 600 Mg Tabcr) 1,200 mg PO Q12 [facility] Stop: 03/06/21 22:28 Last Admin: 02/11/21 08:44 Dose: 1,200 mg Documented by: Guaifenesin/Codeine Phosphate (Guaifenesin/Codeine 200mg/20mg 10ml Udc) 10 ml PO Q6H PRN PRN Reason: Cough Stop: 03/09/21 10:30 Last Admin: 02/07/21 21:42 Dose: 10 ml Documented by: Dexamethasone 6 mg/ Syringe 1.5 mls @ 1 mls/min IV Q24H [facility] Stop: 02/14/21 08:59 Last Admin: 02/11/21 08:45 Dose: 1 mls/min Documented by: Ipratropium [place] (Ipratropium [place] Hfa Inhaler) 1 puffs INH Q4 PRN PRN Reason: Shortness Of Breath Or Wheezin Stop: 03/09/21 07:55 Lisinopril (Lisinopril 20 Mg Tab) 20 mg PO DAILY [facility] Stop: 03/07/21 08:59 Last Admin: 02/11/21 08:47 Dose: 20 mg Documented by: Melatonin (Melatonin 3 Mg Tab) 3 mg PO HS PRN PRN Reason: Sleep Stop: 03/06/21 22:28 Last Admin: 02/08/21 21:39 Dose: 3 mg Documented by: Nystatin (Nystatin Susp 500,000 U/5 Ml Udc) 5 ml PO QID [facility] Stop: 02/18/21 12:59 Last Admin: 02/11/21 08:46 Dose: 5 ml Documented by: Ondansetron HCl (Ondansetron Inj 2 Mg/Ml 2 Ml Vial) 4 mg IV Q6H PRN PRN Reason: Nausea Stop: 03/06/21 22:28 Polyethylene Glycol (Polyethylene (Miralax) 17 Gm Pack) 17 gm PO DAILY [facility] Stop: 03/07/21 08:59 Last Admin: 02/11/21 08:46 Dose: Not Given Documented by: Senna/Docusate Sodium (Docusate Sodium/Senna 50/8.6mg Tab) 1 tab PO QAM [facility] Stop: 03/09/21 10:44 Last Admin: 02/11/21 08:47 Dose: 1 tab Documented by: PG Care Time/CCT Total # of Minutes Spent Total Time Spent with Patient: Total time spent is greater than 50% in coordination of care (as documented) at patient's floor/unit and/or counseling patient: Coding Level of Care Code 00625 Subseq Hosp Care Lvl 2 Diagnoses Pneumonia due to COVID-19 virus U07.1; J12.82 Acute respiratory failure with hypoxia J96.01 CAD (coronary artery disease) I25.10 Coronary Disease-Associated Artery/Lesion type: [place] artery [place] vs. transplanted heart: [place] heart Associated angina: without angina Mixed hyperlipidemia E78.2 Essential (primary) hypertension I10 Elevated troponin R77.8 History of lung cancer Z85.118 Elevated AST (SGOT) R74.01 DVT prophylaxis Z29.9 Constipated K59.00 (1) CAD (coronary artery disease) Coronary Disease-Associated Artery/Lesion type: [place] artery [place] vs. transplanted heart: [place] heart Associated angina: without angina Qualified Code(s): I25.10 - Atherosclerotic heart disease of [place] coronary artery without angina pectoris
[2021-02-12] MEDS: FAMOTIDINE 20 MG TAB PO SCH ×2 (08:17→21:09)
[2021-02-12] MEDS: guaiFENesin 600 MG TABCR PO SCH ×2 (08:18→21:09)
[2021-02-12] MEDS: NYSTATIN SUSP 500,000 U/5 ML UDC PO SCH ×4 (08:18→21:10)
[2021-02-12] MEDS: lisinopril 20 MG TAB PO SCH (08:19)
[2021-02-12] MEDS: ENOXAPARIN INJ 40 MG/0.4 ML SYR SQ SCH ×2 (08:19→21:08)
[2021-02-12] MEDS: ATORVASTATIN 40 MG TAB PO SCH (08:19)
[2021-02-12] MEDS: ASPIRIN 81 MG ECTAB PO SCH (08:20)
[2021-02-12] MEDS: dexAMETHasone 6 MG in SYRINGE 0 ML IV SCH (08:21)
[2021-02-12] MEDS: carvediloL 3.125 MG TAB PO SCH ×2 (08:21→21:10)
[2021-02-12] MEDS: POLYETHYLENE (MIRALAX) 17 GM PACK PO SCH (08:21)
[2021-02-12] MEDS: DOCUSATE SODIUM/SENNA 50/8.6MG TAB PO SCH (08:22)
--- NOTE | 2021-02-12 10:03 | Hospitalist Progress Note ---
Date of Service February 12, 2021 Assessment & Plan (1) Pneumonia due to COVID-19 virus: With resulting acute hypoxic resp failure. Moderate disease radiographically and clinically. continue dexamethasone 6mg IV daily, day 8 today Discussed in detail self-proning, explained she should do this 3-4x a day, helps prevent progression Flutter valve/incentive cindy, she is compliant Mucinex BID. Combivent qid. titrated down to 2-3L NC today, no accessory muscle use finally admits to feeling better anticipate she will be down to room air in next 2-3 days (2) Acute respiratory failure with hypoxia: 2nd COVID-19 pneumonia. See above. downt to 2-3L today have her lay prone several times today, try to sleep prone if possible (3) CAD (coronary artery disease): h/o acute [place] 2015. Stents x 2 at that time; placed at [facility]. No chest pain Continue asa, statin, BB. (4) Mixed hyperlipidemia: AST minimally elevated today; likely 2nd to COVID-19. Will cont statin cautiously. AST trending down. (5) Essential (primary) hypertension: Cont coreg & lisinopril. (6) Elevated troponin: Likely myocardial demand ischemia in setting of acute hypoxic resp failure/COVID-19 pneumonia. Trops tending down. (7) History of lung cancer: LLL. s/p lobectomy in the past. (8) Elevated AST (SGOT): Likely 2nd COVID-19 infection. going down (9) DVT prophylaxis: Given high risk of VTE with COVID will place on BID lovenox. (10) Constipated: resolved, moving bowels regularly Admission and Anticipated Discharge Date Admission Date: February 04, 2021 Subjective patient doing better today, actually smiling, says she is breathing easier, more strength eating well, moved her bowels, making urine walked to the toilet several times today, less dyspnea on exertion and not desaturating as bad no labs today, no fever, vitals stable, down to 2-3L from 4L Review of Systems Review of Systems: All systems reviewed & are unremarkable except as noted in Subjective Physical Exam Constitutional: WD/WN, vitals as above Neck: trachea midline, no thyromegaly Respiratory: normal respiratory effort; no respiratory distress, no labored breathing and no cough Auscultation: lungs clear to auscultation bilaterally Cardiovascular: RRR, no murmur, no edema Gastrointestinal (Abdomen): normal bowel sounds, soft, nontender, no hepatosplenomegaly Musculoskeletal: no cyanosis or clubbing, extremities motor strength 5/5 Skin: no rashes, warm and dry Neurologic: patellar DTR's 2+ bilat, sensation intact and PERRL, EOMI, accommodation nl, no face palsy, no dysarthria Psychiatric: A+Ox3, euthymic affect Lymphatic: no cervical or axillary lymphadenopathy Results & Data Results & Data ([facility]) Vital Signs (Past 12 Hours) Vital Signs Temp Pulse Pulse Resp BP BP Pulse Ox 02/12/21 08:39 36.7 C 70 16 101/56 L 90 02/12/21 07:46 58 L 02/12/21 03:27 36.4 C L 63 19 125/50 L 93 02/12/21 00:37 64 02/11/21 23:07 36.8 C 76 72 H 137/57 L 90 Medications Administered Current Inpatient Medications Acetaminophen (Acetaminophen 325 Mg Tab) 650 mg PO Q4H PRN PRN Reason: Pain or Fever Stop: 03/06/21 22:28 Albuterol (Albuterol Hfa 8 Gm Inhaler) 1 puffs INH Q4 PRN PRN Reason: Shortness Of Breath Or Wheezin Stop: 03/09/21 07:55 Aspirin (Aspirin 81 Mg Ectab) 81 mg PO DAILY [facility] Stop: 03/07/21 08:59 Last Admin: 02/12/21 08:20 Dose: 81 mg Documented by: Atorvastatin Calcium (Atorvastatin 40 Mg Tab) 40 mg PO DAILY [facility] Stop: 03/07/21 08:59 Last Admin: 02/12/21 08:19 Dose: 40 mg Documented by: Calcium Carbonate (Calcium Carbonate 500 Mg Chewable Tab) 500 mg PO Q4H PRN PRN Reason: Indigestion Stop: 03/08/21 21:55 Last Admin: 02/06/21 22:13 Dose: 500 mg Documented by: Carvedilol (Carvedilol 3.125 Mg Tab) 3.125 mg PO BID [facility] Stop: 03/06/21 22:28 Last Admin: 02/12/21 08:21 Dose: Not Given Documented by: Enoxaparin Sodium (Enoxaparin Inj 40 Mg/0.4 Ml Syr) 40 mg SQ Q12H [facility] Stop: 03/07/21 07:59 Last Admin: 02/12/21 08:19 Dose: 40 mg Documented by: Famotidine (Famotidine 20 Mg Tab) 20 mg PO BID [facility] Stop: 03/06/21 22:28 Last Admin: 02/12/21 08:17 Dose: 20 mg Documented by: Guaifenesin (Guaifenesin 600 Mg Tabcr) 1,200 mg PO Q12 [facility] Stop: 03/06/21 22:28 Last Admin: 02/12/21 08:18 Dose: 1,200 mg Documented by: Guaifenesin/Codeine Phosphate (Guaifenesin/Codeine 200mg/20mg 10ml Udc) 10 ml PO Q6H PRN PRN Reason: Cough Stop: 03/09/21 10:30 Last Admin: 02/07/21 21:42 Dose: 10 ml Documented by: Dexamethasone 6 mg/ Syringe 1.5 mls @ 1 mls/min IV Q24H [facility] Stop: 02/14/21 08:59 Last Admin: 02/12/21 08:21 Dose: 1 mls/min Documented by: Ipratropium [place] (Ipratropium [place] Hfa Inhaler) 1 puffs INH Q4 PRN PRN Reason: Shortness Of Breath Or Wheezin Stop: 03/09/21 07:55 Lisinopril (Lisinopril 20 Mg Tab) 20 mg PO DAILY [facility] Stop: 03/07/21 08:59 Last Admin: 02/12/21 08:19 Dose: 20 mg Documented by: Melatonin (Melatonin 3 Mg Tab) 3 mg PO HS PRN PRN Reason: Sleep Stop: 03/06/21 22:28 Last Admin: 02/08/21 21:39 Dose: 3 mg Documented by: Nystatin (Nystatin Susp 500,000 U/5 Ml Udc) 5 ml PO QID [facility] Stop: 02/18/21 12:59 Last Admin: 02/12/21 08:18 Dose: 5 ml Documented by: Ondansetron HCl (Ondansetron Inj 2 Mg/Ml 2 Ml Vial) 4 mg IV Q6H PRN PRN Reason: Nausea Stop: 03/06/21 22:28 Polyethylene Glycol (Polyethylene (Miralax) 17 Gm Pack) 17 gm PO DAILY [facility] Stop: 03/07/21 08:59 Last Admin: 02/12/21 08:21 Dose: Not Given Documented by: Senna/Docusate Sodium (Docusate Sodium/Senna 50/8.6mg Tab) 1 tab PO QAM [facility] Stop: 03/09/21 10:44 Last Admin: 02/12/21 08:22 Dose: 1 tab Documented by: PG Care Time/CCT Total # of Minutes Spent Total Time Spent with Patient: Total time spent is greater than 50% in coordination of care (as documented) at patient's floor/unit and/or counseling patient: Coding Level of Care Code 84391 Subseq Hosp Care Lvl 2 Diagnoses Pneumonia due to COVID-19 virus U07.1; J12.82 Acute respiratory failure with hypoxia J96.01 CAD (coronary artery disease) I25.10 Associated angina: without angina Coronary Disease-Associated Artery/Lesion type: [place] artery [place] vs. transplanted heart: [place] heart Mixed hyperlipidemia E78.2 Essential (primary) hypertension I10 Elevated troponin R77.8 History of lung cancer Z85.118 Elevated AST (SGOT) R74.01 DVT prophylaxis Z29.9 Constipated K59.00 (1) CAD (coronary artery disease) Associated angina: without angina Coronary Disease-Associated Artery/Lesion type: [place] artery [place] vs. transplanted heart: [place] heart Qualified Code(s): I25.10 - Atherosclerotic heart disease of [place] coronary artery without angina pectoris
[2021-02-12] MEDS: MELATONIN 3 MG TAB PO PRN (21:09)
[2021-02-13] MEDS: NYSTATIN SUSP 500,000 U/5 ML UDC PO SCH ×4 (08:27→20:39)
[2021-02-13] MEDS: ATORVASTATIN 40 MG TAB PO SCH (08:27)
[2021-02-13] MEDS: dexAMETHasone 6 MG in SYRINGE 0 ML IV SCH (08:27)
[2021-02-13] MEDS: lisinopril 20 MG TAB PO SCH (08:27)
[2021-02-13] MEDS: ASPIRIN 81 MG ECTAB PO SCH (08:27)
[2021-02-13] MEDS: carvediloL 3.125 MG TAB PO SCH ×2 (08:28→20:37)
[2021-02-13] MEDS: ENOXAPARIN INJ 40 MG/0.4 ML SYR SQ SCH ×2 (08:28→20:36)
[2021-02-13] MEDS: POLYETHYLENE (MIRALAX) 17 GM PACK PO SCH (08:28)
[2021-02-13] MEDS: guaiFENesin 600 MG TABCR PO SCH ×2 (08:28→20:38)
[2021-02-13] MEDS: DOCUSATE SODIUM/SENNA 50/8.6MG TAB PO SCH (08:29)
[2021-02-13] MEDS: FAMOTIDINE 20 MG TAB PO SCH ×2 (08:29→20:40)
--- NOTE | 2021-02-13 10:18 | Hospitalist Progress Note ---
Date of Service February 13, 2021 Assessment & Plan (1) Pneumonia due to COVID-19 virus: With resulting acute hypoxic resp failure. Moderate disease radiographically and clinically. continue dexamethasone 6mg IV daily, day 9 today Discussed in detail self-proning, explained she should do this 3-4x a day, helps prevent progression Flutter valve/incentive cindy, she is compliant Mucinex BID. Combivent qid. titrated down to only 1L NC today, no accessory muscle use finally admits to feeling better the past two days will plan for two step tomorrow morning, will be ready for discharge in the afternoon (2) Acute respiratory failure with hypoxia: 2nd COVID-19 pneumonia. See above. down to 1L today plan for two step tomorrow (3) CAD (coronary artery disease): h/o acute DC 2015. Stents x 2 at that time; placed at [facility]. No chest pain Continue asa, statin, BB. (4) Mixed hyperlipidemia: AST minimally elevated today; likely 2nd to COVID-19. Will cont statin cautiously. AST trending down. (5) Essential (primary) hypertension: Cont coreg & lisinopril. (6) Elevated troponin: Likely myocardial demand ischemia in setting of acute hypoxic resp failure/COVID-19 pneumonia. Trops tending down. (7) History of lung cancer: LLL. s/p lobectomy in the past. (8) Elevated AST (SGOT): Likely 2nd COVID-19 infection. going down (9) DVT prophylaxis: Given high risk of VTE with COVID will place on BID lovenox. (10) Constipated: resolved, moving bowels regularly Admission and Anticipated Discharge Date Admission Date: February 04, 2021 Subjective patient feeling great today, down to 1L, she is smiling, feeling better and better she has a cough, frustrated she cannot get up phlegm, assured her that it is normal with viral pneumonia she is eating well, making urine, moving her bowels, no fever/chills she feels confident about going home tomorrow discussed that we will get a two step tomorrow to see if she needs home oxygen, she agrees I called her son Grabiel to let him know about plans for discharge tomorrow afternoon Review of Systems Review of Systems: All systems reviewed & are unremarkable except as noted in Subjective Constitutional: no fever, no fatigue and no weakness Respiratory: + cough Cardiovascular: no chest pain and no dyspnea Gastrointestinal: no abdominal pain, no nausea, no vomiting, no constipation and no diarrhea/loose stools Physical Exam Constitutional: WD/WN, vitals as above Neck: trachea midline, no thyromegaly Respiratory: normal respiratory effort, lungs clear to auscultation normal respiratory effort; no respiratory distress, no labored breathing and no cough Auscultation: lungs clear to auscultation bilaterally Cardiovascular: RRR, no murmur, no edema Gastrointestinal (Abdomen): normal bowel sounds, soft, nontender, no hepatosplenomegaly Musculoskeletal: no cyanosis or clubbing, extremities motor strength 5/5 Skin: no rashes, warm and dry Neurologic: patellar DTR's 2+ bilat, sensation intact and PERRL, EOMI, accommodation nl, no face palsy, no dysarthria Psychiatric: A+Ox3, euthymic affect Lymphatic: no cervical or axillary lymphadenopathy Results & Data Results & Data ([facility]) Vital Signs (Past 12 Hours) Vital Signs Temp Pulse Pulse Resp BP Pulse Ox 02/13/21 08:00 51 L 02/13/21 07:52 36.4 C L 57 L 16 123/63 95 02/13/21 03:03 36.4 C L 56 L 18 101/63 94 02/12/21 23:46 59 L 02/12/21 23:07 36.5 C 67 18 108/46 L 93 Medications Administered Current Inpatient Medications Acetaminophen (Acetaminophen 325 Mg Tab) 650 mg PO Q4H PRN PRN Reason: Pain or Fever Stop: 03/06/21 22:28 Albuterol (Albuterol Hfa 8 Gm Inhaler) 1 puffs INH Q4 PRN PRN Reason: Shortness Of Breath Or Wheezin Stop: 03/09/21 07:55 Aspirin (Aspirin 81 Mg Ectab) 81 mg PO DAILY [facility] Stop: 03/07/21 08:59 Last Admin: 02/13/21 08:27 Dose: 81 mg Documented by: Atorvastatin Calcium (Atorvastatin 40 Mg Tab) 40 mg PO DAILY [facility] Stop: 03/07/21 08:59 Last Admin: 02/13/21 08:27 Dose: 40 mg Documented by: Calcium Carbonate (Calcium Carbonate 500 Mg Chewable Tab) 500 mg PO Q4H PRN PRN Reason: Indigestion Stop: 03/08/21 21:55 Last Admin: 02/06/21 22:13 Dose: 500 mg Documented by: Carvedilol (Carvedilol 3.125 Mg Tab) 3.125 mg PO BID [facility] Stop: 03/06/21 22:28 Last Admin: 02/13/21 08:28 Dose: 3.125 mg Documented by: Enoxaparin Sodium (Enoxaparin Inj 40 Mg/0.4 Ml Syr) 40 mg SQ Q12H [facility] Stop: 03/07/21 07:59 Last Admin: 02/13/21 08:28 Dose: 40 mg Documented by: Famotidine (Famotidine 20 Mg Tab) 20 mg PO BID [facility] Stop: 03/06/21 22:28 Last Admin: 02/13/21 08:29 Dose: 20 mg Documented by: Guaifenesin (Guaifenesin 600 Mg Tabcr) 1,200 mg PO Q12 [facility] Stop: 03/06/21 22:28 Last Admin: 02/13/21 08:28 Dose: 1,200 mg Documented by: Guaifenesin/Codeine Phosphate (Guaifenesin/Codeine 200mg/20mg 10ml Udc) 10 ml PO Q6H PRN PRN Reason: Cough Stop: 03/09/21 10:30 Last Admin: 02/07/21 21:42 Dose: 10 ml Documented by: Dexamethasone 6 mg/ Syringe 1.5 mls @ 1 mls/min IV Q24H [facility] Stop: 02/14/21 08:59 Last Admin: 02/13/21 08:27 Dose: 1 mls/min Documented by: Ipratropium Woodruff (Ipratropium Woodruff Hfa Inhaler) 1 puffs INH Q4 PRN PRN Reason: Shortness Of Breath Or Wheezin Stop: 03/09/21 07:55 Lisinopril (Lisinopril 20 Mg Tab) 20 mg PO DAILY [facility] Stop: 03/07/21 08:59 Last Admin: 02/13/21 08:27 Dose: 20 mg Documented by: Melatonin (Melatonin 3 Mg Tab) 3 mg PO HS PRN PRN Reason: Sleep Stop: 03/06/21 22:28 Last Admin: 02/12/21 21:09 Dose: 3 mg Documented by: Nystatin (Nystatin Susp 500,000 U/5 Ml Udc) 5 ml PO QID [facility] Stop: 02/18/21 12:59 Last Admin: 02/13/21 08:27 Dose: 5 ml Documented by: Ondansetron HCl (Ondansetron Inj 2 Mg/Ml 2 Ml Vial) 4 mg IV Q6H PRN PRN Reason: Nausea Stop: 03/06/21 22:28 Polyethylene Glycol (Polyethylene (Miralax) 17 Gm Pack) 17 gm PO DAILY [facility] Stop: 03/07/21 08:59 Last Admin: 02/13/21 08:28 Dose: Not Given Documented by: Senna/Docusate Sodium (Docusate Sodium/Senna 50/8.6mg Tab) 1 tab PO QAM [facility] Stop: 03/09/21 10:44 Last Admin: 02/13/21 08:29 Dose: Not Given Documented by: PG Care Time/CCT Total # of Minutes Spent Total Time Spent with Patient: Total time spent is greater than 50% in coordination of care (as documented) at patient's floor/unit and/or counseling patient: Coding Level of Care Code 71977 Subseq Hosp Care Lvl 2 Diagnoses Pneumonia due to COVID-19 virus U07.1; J12.82 Acute respiratory failure with hypoxia J96.01 CAD (coronary artery disease) I25.10 Associated angina: without angina Coronary Disease-Associated Artery/Lesion type: [place] artery [place] vs. transplanted heart: [place] heart Mixed hyperlipidemia E78.2 Essential (primary) hypertension I10 Elevated troponin R77.8 History of lung cancer Z85.118 Elevated AST (SGOT) R74.01 DVT prophylaxis Z29.9 Constipated K59.00 (1) CAD (coronary artery disease) Associated angina: without angina Coronary Disease-Associated Artery/Lesion type: [place] artery [place] vs. transplanted heart: [place] heart Qualified Code(s): I25.10 - Atherosclerotic heart disease of [place] coronary artery without angina pectoris
[2021-02-14] MEDS: carvediloL 3.125 MG TAB PO SCH (08:03)
[2021-02-14] MEDS: ATORVASTATIN 40 MG TAB PO SCH (08:03)
[2021-02-14] MEDS: ASPIRIN 81 MG ECTAB PO SCH (08:03)
[2021-02-14] MEDS: lisinopril 20 MG TAB PO SCH (08:03)
[2021-02-14] MEDS: NYSTATIN SUSP 500,000 U/5 ML UDC PO SCH ×2 (08:03→14:00)
[2021-02-14] MEDS: FAMOTIDINE 20 MG TAB PO SCH (08:03)
[2021-02-14] MEDS: ENOXAPARIN INJ 40 MG/0.4 ML SYR SQ SCH (08:04)
[2021-02-14] MEDS: POLYETHYLENE (MIRALAX) 17 GM PACK PO SCH (08:04)
[2021-02-14] MEDS: DOCUSATE SODIUM/SENNA 50/8.6MG TAB PO SCH (08:05)
[2021-02-14] MEDS: guaiFENesin 600 MG TABCR PO SCH (08:05)
[2021-02-14 09:38] LABS: Albumin Level 3.3 gm/dl (3.4-5.0); BUN Creatinine Ratio 29.7 (10-20); Calcium 9.2 mg/dl (8.5-10.1); Creatinine Clr Calc Pharmacy 48.2 ml/min; Est GFR (Non-African American) 57.8; Potassium 3.6 mmol/L (3.5-5.1)
[2021-02-14 09:41] LABS: Bilirubin,Total 0.8 mg/dl (0.2-1); Globulin 3.4 gm/dl (2.5-4.0); Total Protein 6.7 gm/dl (6.4-8.2)
--- NOTE | 2021-02-14 14:26 | Discharge Summary ---
Date of Service date of admission - February 04, 2021 date of discharge - February 14, 2021 Admission HPI Per Admitting Provider 75yo female with h/o HTN & hyperlipidemia presents with worsening COVID-19 symptoms that began on January 23. Started with severe fatigue for 2-3 days, followed by severe body aches. This was associated with nasal congestion, headache, and cough. The cough started very early in the illness. Cough is largely dry. Has had at least 2 instances of fever, highest about 101. Occasional chill. VERY poor appetite. Drinking some fluids. No vomiting or diarrhea. Has had nausea. Has lost both her taste and smell. The cough and shortness of breath have worsened in the last few days. She had mild discomfort under the costal margin recently but this is now resolved. Today she "couldn't stand it any longer - I was so sick" and thus she came to be evaluated. Her initial diagnosis of COVID was made in early January at an urgent care in [place]. The MD at the urgent care called in doxycycline for a possible concomitant sinus infection but she never took it. Principal Diagnosis acute hypoxic respiratory failure 2nd to COVID-19 pneumonia Discharge Exam Constitutional well developed and well nourished; no acute distress and no altered mental status ENMT external ear and nose normal, oropharynx normal Respiratory no respiratory distress Auscultation: + rales (Bases b/l); no wheezes Cardiovascular Rate/Rhythm: regular rate and regular rhythm Heart Sounds: normal S1 and normal S2; no murmur Vessels: posterior tibial pulses present and dorsalis pedis pulses present; no JVD Extremities: no edema Gastrointestinal (Abdomen) normal bowel sounds, soft, nontender, no hepatosplenomegaly Neurologic moves all extremities Psychiatric A+Ox3, euthymic affect Discharge Data Allergies Allergy/AdvReac Type Severity Reaction Status Date / Time latex Allergy Intermediate RASH Verified 02/04/21 17:16 Sulfa (Sulfonamide Allergy Intermediate RASH Verified 02/04/21 17:16 Antibiotics) Procedures Performed 2-step oxygen test -- TWO liters of NC O2 needed with ambulation only; no supplemental O2 needed at rest. Hospital Course (1) Pneumonia due to COVID-19 virus: With resulting acute hypoxic resp failure. Moderate disease radiographically and clinically. Unfortunately she was too far into her illness for use of remdesivir or convalescent plasma at time of admission. Completed a 10-day course of dexamethasone 6mg daily while hospitalized. There were no signs of secondary bacterial infection during her illness. Received BID lovenox for DVT prophylaxis. Patient performed aggressive pulmonary toilet during the stay. On day of discharge the patient underwent 2-step oxygen test which demonstrated a need for 2 liters of NC O2 with ambulation only. Lastly, the patient will follow-up with [facility] given the severity of her illness. (2) Acute respiratory failure with hypoxia: 2nd COVID-19 pneumonia. See above. (3) CAD (coronary artery disease): h/o acute [place] 2015. Stents x [facility] at that time[facility] No ischemic symptoms during this stay. Continue asa, BB, etc. (4) Mixed hyperlipidemia: AST minimally elevated during the stay likely 2nd to COVID-19 Lipitor held at discharge. Repeat LFTs will be needed at time of hospital follow-up. (5) Essential (primary) hypertension: Cont coreg & lisinopril. Controlled. (6) Elevated troponin: Likely myocardial demand ischemia in setting of acute hypoxic resp failure/COVID-19 pneumonia. Peak troponin 0.083. (7) History of lung cancer: LLL. s/p lobectomy in the past. (8) Elevated AST (SGOT): Likely 2nd COVID-19 infection. See above. (9) DVT prophylaxis: Given high risk of VTE with COVID 19 patient received lovenox 40mg BID during the hospitalization. Home Health Attestation I certify that this patient is under my care and that I, or a physicians facility assistant working with me, had a face to-face encounter that meets the home health [id number] encounter requirements with this patient. The encounter with the patient was in whole, or in part, for the following medical condition, which is the primary reason for home health care (list medical condition): I certify that, based on my findings, the following services are medically necessary home health services: My clinical findings support the need for the above services because: PT Eval for Safety and Mobility Skilled Nsg Assessment Further, I certify that my clinical findings support that this patient is homebound (i.e. absences from home require considerable and taxing effort and are for medical reasons or [employer]iscop[employer] services or infrequently or of short duration when for other reasons) because: Poor Endurance; SOB Minimal Exertion Certification for Home Health Services: Based on the above findings, I certify that this patient is confined to the home and needs intermittent retirement care, physical therapy and/or speech therapy or continues to need occupational therapy. The patient is under my care, and I have initiated the establishment of the plan of care. This patient will be followed by a physician who will periodically review the plan of care. Total Time Total Time Spent Total Time Spent (In Minutes): 40 Total Time Includes: Examination of the Patient, Discharge Planning, Medication Reconciliation and Communication With Other Providers Discharge Plan Discharge Items Patient Disposition: Home - Home Health Services Reason For Visit: COVID-19 PNEUMONIA Discharge Diagnosis: COVID-19 Pneumonia - improved Activity: As commented below Activity Comment: gradually increase your activities as tolerated over the next few weeks Non-emergency contact: Primary Care Provider and Mobile Marketing Manager Call non-emergency contact if: you have any medication questions, your symptoms worsen and you have a fever Follow-up/Referrals: Dougie Del Valle [Primary Care Provider] - 02/22/21 3:45 pm (please see Dr Del Valle within 1 week [facility] WILL CALL YOU WITH A FOLLOW UP APT.) Diet: Heart Healthy Addtl Attending Provider Instructions: Mrs Thomas, Rm were hospitalized for COVID-19 pneumonia. You received a 10-day course of dexamethasone steroids along with oxygen and other supportive measures. Your breathing gradually improved, and we have weaned you off oxygen during the daytime. Your walking test on the day of discharge, however, shows that you do need oxygen with walking. Thus, anytime you are walking in your yard or home, or leaving your home for errands/etc, please use the oxygen. If you feel you need to use the oxygen at night-time it is permissible to use it then, too. For any cough may use [id number] mucinex up to 1200mg twice daily as desired. Continue to use the flutter valve and incentive spirometry devices given to you at the hospital for another 1-2 weeks for your lungs. For yeast infection in the mouth ("Thrush") please use the nystatin swish 4 times a day for 7 more days then stop. Swish in mouth then spit. We will set you up with home PT/OT to help you regain some of your strength. At this time you are no longer contagious to others. It is ok to leave your home as needed. Please continue to wear your mask any time you leave your home. COVID vaccine - in about 2-3 months please strongly consider getting the COVID vaccine. You can talk to your family doctor about this. Finally, one of your liver function tests was mildly elevated due to the COVID virus itself. Please do the following - * HOLD your atorvastatin cholesterol medication * avoid tylenol * have your family doctor repeat your liver tests in about 1 week to ensure they are stable/normalizing Follow-up -- see separate section Return to [facility] if -- * you have fevers over 100 degrees * you have worsening shortness of breath * you have chest pains * you develop pain or swelling in your legs * you have to start using your oxygen while sitting, or you have to increase the oxygen amount * any other concerns Continue to feel better! -Dr Temple Pending Studies at Discharge: No Stand-Alone Forms: [facility], Smoking Cessation Medications and DC Order Prescriptions: New (DME) Oxygen Home Liters Per Minute See Rx Instructions .ROUTE .MEDSUPPLY Qty: 1 RF: 0 Continued lisinopril 20 mg tablet 20 mg PO DAILY RF: 0 aspirin [Aspirin Low Dose] 81 mg Tablet,Delayed Release (Dr/Ec) 81 mg PO DAILY RF: 0 carvedilol 3.125 mg tablet 3.125 mg PO BID RF: 0 Discontinued atorvastatin 40 mg tablet 40 mg PO DAILY RF: 0 doxycycline monohydrate 100 mg capsule 100 mg PO BID RF: 0 Discharge Orders: Discharge Order (Routine); Ordered 02/14/21 Ordered By: George Bowman/Other Patient Handouts: 2019-nCoV, COVID-19 Home Care, Disinfecting Your Home of COVID-19, How COVID-19 Spreads Admission Data Admit Date/Time: 02/04/21 18:29 Attending Provider: George Temple Admit Provider: George Temple Primary Care Provider: Dougie Del Valle Other Providers: George Temple ; Rich Roblero [facility] Other Interventions: Discharge Summary Assessment (RN) Last Done: 02/14/21 14:23 Coding Level of Care Code D/C Day Management >30 mins Diagnoses Pneumonia due to COVID-19 virus U07.1; J12.82 Acute respiratory failure with hypoxia J96.01 CAD (coronary artery disease) I25.10 Associated angina: without angina Coronary Disease-Associated Artery/Lesion type: [place] artery [place] vs. transplanted heart: [place] heart Mixed hyperlipidemia E78.2 Essential (primary) hypertension I10 Elevated troponin R77.8 History of lung cancer Z85.118 Elevated AST (SGOT) R74.01 DVT prophylaxis Z29.9
== END 2021-02-14 16:56 | disposition home health service (06) | DRG 177 ==
LOC: ED 15:47 → 2S 18:29 → SUATTDRO 18:29 → 2S 22:04